=== PATIENT | female | born 1945 | race Caucasian/White ===

== ENCOUNTER → 2017-08-31 15:51 | Outpatient (CLI) | payer MEDICARE, OTHER, SELFPAY ==
[2017-08-31 17:42] LABS: Add Manual Diff / Slide Review NO; Basophils Percent Auto 0.8 % (0-2); Eosinophils Percent Auto 1.9 % (2-4); Hematocrit 37.7 % (36-46); Hemoglobin 12.9 g/dL (12.0-16.0); Lymphocytes Percent Auto 28.6 % (25-40); Mean Corpuscular HGB Conc 34.3 % (30-36); Mean Corpuscular Hemoglobin 33.8 PG (26-34); Mean Corpuscular Volume 98.5 fL (80-100); Monocytes Percent Auto 5.7 % (3-14); Neutrophils Absolute Auto 3300 /uL (3000-5900); Platelet Count 200 X10^3/uL (150-400); Red Blood Cell Count 3.83 X10^6/uL (4.0-5.2); Red Cell Distribution Width 13.8 % (11.6-14.8); White Blood Cell Count 5.2 X10^3/uL (4.5-11.0)
[2017-08-31 18:12] LABS: Erythrocyte Sedimentation Rate 7 MM/HR (0-20)
[2017-08-31 18:23] LABS: Free T3, Triiodothyronine Free 3.16 pg/mL (2.77-5.27); Free T4, Direct Thyroxine 0.98 ng/dL (0.78-2.19)
[2017-08-31 18:37] LABS: TSH w/ Reflex to FT4 1.96 uIU/mL (0.47-4.68)
[2017-08-31 19:27] LABS: Alanine Aminotransferase 43 IU/L (9-52); Albumin 4.2 g/dL (3.5-5.0); Albumin Globulin Ratio 1.8 (1.0-2.8); Alkaline Phosphatase 38 U/L (38-126); Aspartate Aminotransferase 38 IU/L (14-36); BUN Creatinine Ratio 18.8 (6-22); Bilirubin Total 0.3 mg/dL (0.2-1.3); Blood Urea Nitrogen 15 mg/dL (7-17); Calcium 9.3 mg/dL (8.4-10.2); Carbon Dioxide 28 mmol/L (22-32); Chloride 104 mmol/L (98-107); Estimated Glomerular Filt Rate > 60.0 mL/min (>60); Globulin 2.3 g/dL (1.7-4.1); Glucose 97 mg/dL (80-110); HEMOLYSIS < 15 (0-50); Potassium 3.7 mmol/L (3.4-5.1); Sodium 142 mmol/L (137-145); Total Protein 6.5 g/dL (6.3-8.2)
[2017-08-31 19:33] LABS: C-Reactive Protein Quant < 0.5 mg/dL (<1.0); Rheumatoid Factor < 8.6 IU/mL (<12.0)
[2017-08-31 19:57] LABS: Testosterone 99.7 ng/dL (5.71-77.0)
[2017-09-02 14:50] LABS: Progesterone 15.9 ng/mL
[2017-09-03 21:44] LABS: ANA Screen NEGATIVE (Negative); DNA Antibody Crithidia IFA NEGATIVE (Negative); Rheumatoid Factor <14 IU/mL; Sjogren Antiboday SS-A <1.0 NEG AI (<1.0 NEGATIVE); Sjogren Antiboday SS-B <1.0 NEG AI (<1.0 NEGATIVE); Sm Antibody <1.0 NEG AI (<1.0 NEGATIVE); Sm/RNP Antibody <1.0 NEG AI (<1.0 NEGATIVE)
== END ==
PROVIDERS: Visit Provider Family Medicine
DX: Z78.0 Asymptomatic menopausal state (principal); R53.83 Other fatigue; G89.29 Other chronic pain
CPT/HCPCS: 36415; 80053; 84144; 84403; 84439; 84443; 84481; 85025; 85651; 86038; 86140; 86430

== ENCOUNTER → 2017-09-16 11:57 | Outpatient (CLI) | payer MEDICARE, OTHER, SELFPAY ==
[2017-09-18 15:19] LABS: Estrogen 85.6 pg/mL
== END ==
PROVIDERS: PCP Family Medicine; Visit Provider Family Medicine
DX: Z78.0 Asymptomatic menopausal state (principal)
CPT/HCPCS: 36415; 82672

== ENCOUNTER 2017-10-13 07:01 | Emergency (ER) | payer MEDICARE, OTHER, SELFPAY ==
--- NOTE | 2017-10-13 07:10 | DI.RAD.S_ITS ---
PROCEDURE: XR CHEST 1V INDICATIONS: swallowed battery TECHNIQUE: One view of the chest was acquired. COMPARISON: [facility], CR, CHEST 2 VIEW, 12/21/2011, 15:23. RG, XR CXR 2V, 12/18/2011, 16:27. RG, XR CXR 2V, 12/17/2011, 19:26. RG, XR CXR 2V, 12/17/2011, 11:00. [facility], CR, CHEST 2VW, 09/08/2011, 8:52. [facility], CR, CHEST 2 VIEW, 04/09/2015, 9:22. FINDINGS: Surgical changes and devices: None. Lungs and pleura: No pleural effusions or pneumothorax. Lungs are clear. Mediastinum: Mediastinal contours appear normal. Heart size is normal. Bones and chest wall: No suspicious bony lesions. Overlying soft tissues appear unremarkable. IMPRESSION: No acute cardiopulmonary disease process. Dictated by: Vanessa Soriano MD, PhD on 10/13/2017 at 9:07 Approved by: Vanessa Soriano MD, PhD on 10/13/2017 at 9:08
--- NOTE | 2017-10-13 07:10 | DI.RAD.S_ITS ---
PROCEDURE: XR ABDOMEN 1V INDICATIONS: swallowed battery TECHNIQUE: One view of the abdomen acquired. COMPARISON: None. FINDINGS: Surgical changes and devices: None. Bowel: Bowel gas pattern is normal except for colonic obstipation mild in overall severity. Within the left midabdomen near the spine margin there is a metallic rounded structure consistent with swallowed battery. More inferiorly within the left hemipelvis there is a ovoid calcification which measures up to 1.1 cm, etiology uncertain. This could represent a bladder calculus, calcified lymph node, bowel content. Soft tissues: No suspicious abdominal calcifications. Visualized solid organ contours appear normal in size. Bones: No suspicious bony lesions. IMPRESSION: Metallic rounded presumed ingested battery given the clinical history above, uncertain etiology for 1.1 cm angular calcification left hemipelvis near the midline, discussed above. Dictated by: Natanael Darling M.D. on 10/13/2017 at 8:07 Approved by: Natanael Darling M.D. on 10/13/2017 at 8:10
--- NOTE | 2017-10-13 07:11 | ED.GENADULT ---
HPI - General Adult General Chief complaint: Abdominal Pain Stated complaint: swallowed hearing aid battery this A.M. Time Seen by Provider: 10/13/17 07:07 Source: patient Mode of arrival: ambulatory Limitations: no limitations History of Present Illness HPI narrative: 71-year-old female here for evaluation after she swallowed a button battery this morning. Patient states that she normally sits her pills out on her nightstand the night before. She states she did this last evening. She also states she took her hearing aids out and thinks that 1 of the batteries were rolled to where her pills were. She states this morning she full glass of water and took the pills and then realized that a battery was with them. She states she has some nausea but no other symptoms. No problems breathing. Related Data Previous Rx's Medication Instructions Recorded albuterol sulfate [Proventil HFA] 0 IH SEE INSTRUCTIONS #1 vicki 10/18/16 azithromycin [Zithromax Z-Surinder] 0 PO QDAY #6 tab 12/01/16 Allergies Allergy/AdvReac Type Severity Reaction Status Date / Time Sulfa (Sulfonamide Allergy Unknown Unverified 06/02/17 12:12 Antibiotics) [SULFA (SULFONAMIDE ANTIBIOTICS)] codeine Allergy Verified 10/13/17 07:12 Review of Systems Constitutional Denies fatigue and Denies fever(s) Cardiovascular Denies chest pain and Denies dyspnea Respiratory Denies dyspnea Gastrointestinal Gastrointestinal: Denies abdominal pain, Denies diarrhea, Reports nausea and Denies vomiting Integumentary/Breasts Denies rash Endocrine Denies fatigue Hematologic/Lymphatic Denies easy bleeding and Denies easy bruising [facility] Medical History Chronic gastroesophageal reflux disease (Acute) Surgical History No pertinent past surgical history (Acute) Social History Smoking Status: Never smoker Exam Initial Vital Signs Initial Vital Signs: Vital Signs Temperature 97.4 F L 10/13/17 07:12 Pulse Rate 60 10/13/17 07:12 Respiratory Rate 15 10/13/17 07:12 Blood Pressure 136/56 H 10/13/17 07:12 Pulse Oximetry 100 10/13/17 07:12 Const General: cooperative, healthy appearing, comfortable, well developed, well groomed and No acute distress Orientation: alert, awake and oriented x3 HENMT Head: normal to inspection, normocephalic and atraumatic Resp Effort & Inspection: normal respiratory effort Auscultation: clear to auscultation bilaterally Cardio Rate: regular rate Rhythm: regular rhythm Skin Lesions: no lesions Rashes: no rashes Neuro General: alert, awake and oriented x3 Extrem General: capillary refill normal Psych Appearance: grossly normal and well kempt Course Orders Ordered: ED Orders 10/13/17 07:10 XR abdomen 1V Stat XR chest 1V Stat Vital Signs - 8 hr 10/13/17 07:12 Temperature 97.4 F L Pulse Rate 60 Respiratory Rate 15 Blood Pressure 136/56 H Pulse Oximetry 100 Medical Decision Making MDM Narrative Medical decision making narrative: Patient is asymptomatic. But better is below the level of diaphragm and the GI tract. No abdominal pain. No respiratory issues. According to current guidelines asymptomatic individuals with button battery in the GI tract require no emergent intervention or consultation. Patient is asymptomatic. She was instructed that she needed to contact her primary doctor to have a repeat x-ray done in 48 hr. She was given return precautions to return to the emergency department sooner this if she started having fevers, abdominal pain, or vomiting. Patient expressed understanding and agreement with plan. Imaging Data Abdominal x-ray: Attestation: I personally reviewed and interpreted this imaging study as follows: My impression: Button battery blood level of diaphragm in the GI tract Discharge Plan Departure Patient Disposition: Home Clinical Impression: Ingestion of button battery Instructions: DI for Foreign Body, Swallowed-Adult Activity Restrictions/Additional Instructions: Recommend that you continue with a normal diet. Contact your primary doctor today to set up a repeat x-ray in 48 hr. Return to the emergency department for any new symptoms, abdominal pain, vomiting, or fevers. Prescriptions: No Action albuterol sulfate [Proventil HFA] 90 MCG/PUFF HFA aerosol inhaler IH SEE INSTRUCTIONS Qty: 1 RF: 0 azithromycin [Zithromax Z-Surinder] 250 MG tablet PO QDAY Qty: 6 RF: 0
[2017-10-13 07:12] VITALS: BP 136/56; PULSE 60; RESP 15; TEMP 36.3; O2SAT 100; BMI 18.8
== END 2017-10-13 07:55 | disposition home or self-care (01) ==
PROVIDERS: Emergency Provider Emergency Medicine; PCP Family Medicine
DX: T18.9XXA Foreign body of alimentary tract, part unspecified, initial encounter (principal)
CPT/HCPCS: 71045; 74018; 99282; 99283

== ENCOUNTER → 2017-10-15 06:34 | Outpatient (CLI) | payer MEDICARE, OTHER, SELFPAY ==
--- NOTE | 2017-10-15 | DI.RAD.S_ITS ---
PROCEDURE: XR KUB INDICATIONS: foreign body of alimentary tract TECHNIQUE: One view of the abdomen acquired. COMPARISON: None. FINDINGS: Surgical changes and devices: None. Bowel: Bowel gas pattern is normal. Soft tissues: No suspicious abdominal calcifications. Visualized solid organ contours appear normal in size. Round radiodensity is seen projecting in right lower quadrant abdomen, which may represent swallowed foreign body. Bones: No suspicious bony lesions. IMPRESSION: Possible swallowed foreign body projecting in right lower quadrant abdomen. No gross free air. Dictated by: Ez Humphries M.D. on 10/15/2017 at 11:10 Approved by: Ez Humphries M.D. on 10/15/2017 at 11:12
== END ==
PROVIDERS: Family Provider Family Medicine; PCP Family Medicine; Visit Provider Family Medicine
DX: T18.9XXA Foreign body of alimentary tract, part unspecified, initial encounter (principal)
CPT/HCPCS: 74018

== ENCOUNTER → 2017-10-19 06:45 | Outpatient (CLI) | payer MEDICARE, OTHER, SELFPAY ==
--- NOTE | 2017-10-19 | DI.RAD.S_ITS ---
PROCEDURE: XR KUB INDICATIONS: FOREIGN BODY OF ALMENTARY TRACK PART TECHNIQUE: One view of the abdomen acquired. COMPARISON: [facility], CR, XR KUB, 10/15/2017, 6:23. FINDINGS: Surgical changes and devices: None. Bowel: Bowel gas pattern is abnormal with colonic obstipation, and within the right lower quadrant a previously reported swallowed small button battery measuring up to 9 mm in diameter can again be seen. Soft tissues: No suspicious abdominal calcifications. Visualized solid organ contours appear normal in size. Bones: No suspicious bony lesions. IMPRESSION: Colonic obstipation. Button battery again seen right lower quadrant approximately shifted by 8 cm from prior position 4 days ago. It remains within the right lower quadrant. Dictated by: Natanael Darling M.D. on 10/19/2017 at 8:52 Approved by: Natanael Darling M.D. on 10/19/2017 at 8:54
== END ==
PROVIDERS: Family Provider Family Medicine; PCP Family Medicine; Visit Provider Family Medicine
DX: T18.8XXA Foreign body in other parts of alimentary tract, initial encounter (principal); K59.00 Constipation, unspecified
CPT/HCPCS: 74018

== ENCOUNTER → 2017-10-30 06:43 | Outpatient (CLI) | payer MEDICARE, OTHER, SELFPAY ==
--- NOTE | 2017-10-30 | DI.RAD.S_ITS ---
PROCEDURE: XR KUB INDICATIONS: FOREIGN BODY OF ALIMENTARY TRACT TECHNIQUE: One view of the abdomen acquired. COMPARISON: [facility], , XR KUB, 10/19/2017, 6:27. FINDINGS: Surgical changes and devices: None. Bowel: Bowel gas pattern is normal. Soft tissues: No suspicious abdominal calcifications. Visualized solid organ contours appear normal in size. The round radiopaque foreign body is again seen projecting in right pelvic region, unchanged from previous study dated 828 10/19/17. Bones: No suspicious bony lesions. IMPRESSION: Radiopaque foreign body projecting in the region of right pelvis unchanged from previous study. No gross free air. Dictated by: Ez Humphries M.D. on 10/30/2017 at 10:17 Approved by: Ez Humphries M.D. on 10/30/2017 at 10:31
== END ==
PROVIDERS: PCP Family Medicine; Visit Provider Family Medicine
DX: T18.9XXA Foreign body of alimentary tract, part unspecified, initial encounter (principal)
CPT/HCPCS: 74018

== ENCOUNTER → 2017-12-08 14:34 | Outpatient (CLI) | payer MEDICARE, OTHER, SELFPAY ==
--- NOTE | 2017-12-08 | DI.MG.S_ITS ---
BILATERAL DIGITAL SCREENING MAMMOGRAM 3D/2D WITH CAD: 12/08/2017 CLINICAL: Routine screening. Family history of breast cancer. Comparison is made to exams dated: 12/04/2016 mammogram - [facility], 10/08/2015 mammogram, and 04/29/2010 mammogram - [facility]. The tissue of both breasts is heterogeneously dense. This may lower the sensitivity of mammography. Current study was also evaluated with a Computer Aided Detection (CAD) system. No significant masses, calcifications, or other findings are seen in either breast. There has been no significant interval change. IMPRESSION: NEGATIVE There is no mammographic evidence of malignancy. A 1 year screening mammogram is recommended. This exam was interpreted at Station ID: [id number]. NOTE: For mammograms, a report in lay terms will be sent to the patient. Approximately 15% of breast malignancies will not be visualized mammographically. In the management of a palpable breast mass, a negative mammogram must not discourage biopsy of a clinically suspicious lesion. Electronically Signed By: James boudreaux/ronnie:12/08/2017 15:06:13 letter sent: Normal Exam ACR BI-RADS Category 1: Negative [id number]
== END ==
PROVIDERS: Family Provider Family Medicine; PCP Family Medicine; Visit Provider Family Medicine
DX: Z12.31 Encounter for screening mammogram for malignant neoplasm of breast (principal); M81.0 Age-related osteoporosis without current pathological fracture
CPT/HCPCS: 77063; 77067; 77080

== ENCOUNTER 2018-01-18 14:25 | Emergency (ER) | payer MEDICARE, OTHER, SELFPAY ==
[2018-01-18 14:31] VITALS: BP 116/53; PULSE 70; RESP 18; TEMP 36.8; O2SAT 100
--- NOTE | 2018-01-18 15:28 | ED.FEMALEGU ---
HPI - Female Genitourinary <GATO Desai - Last Filed: 01/18/18 20:15> General Chief complaint: Vaginal Bleeding Stated complaint: VAGINAL BLEEDING Time Seen by Provider: 01/18/18 14:56 Source: patient Mode of arrival: ambulatory Limitations: no limitations History of Present Illness HPI Narrative: Patient is a postmenopausal 72-year-old female with history of constipation who presents with chief complaint of sudden onset vaginal bleeding today. She states she has a history of constipation. She is confident that her bleeding is vaginal and not rectal at this point time. She complains of lower abdominal fullness recently. She denies any acute abdominal pain, nausea, vomiting, diarrhea or fever. She states that she has noticed some blood when she wipes after she urinates. She denies any dysuria urgency frequency flank pain or other signs of urinary tract infection. She states she called her PCP who suggested that she come to the emergency department for evaluation of her vaginal bleeding. She denies any lightheadedness, dizziness chest pain or shortness of breath. She states she does have a hemorrhoid that ?pops out? from time to time. She states she had a normal colonoscopy last year. Related Data Home Medications Medication Instructions Recorded Confirmed alendronate 10 mg PO DAILY 01/18/18 01/18/18 amitriptyline 25 mg PO DAILY 01/18/18 01/18/18 omeprazole 20 mg PO BID 01/18/18 01/18/18 polyethylene glycol 3350 01/18/18 simvastatin 20 mg PO DAILY 01/18/18 01/18/18 Previous Rx's Medication Instructions Recorded albuterol sulfate [Proventil HFA] 0 IH SEE INSTRUCTIONS #1 vicki 10/18/16 Allergies Allergy/AdvReac Type Severity Reaction Status Date / Time Sulfa (Sulfonamide Allergy Unknown Unverified 06/02/17 12:12 Antibiotics) [SULFA (SULFONAMIDE ANTIBIOTICS)] codeine Allergy Verified 10/13/17 07:12 Review of Systems <GATO Desai - Last Filed: 01/18/18 20:15> Review of Systems GENERAL: Denies chills, fatigue, malaise, fever, sweats. HEENT: Denies sinus pain, ear pain, sore throat, difficulty swallowing, dizziness. RESPIRATORY: Denies dyspnea, cough, wheezing, hemoptysis, sputum. CARDIOVASCULAR: Denies chest pain, palpitations, orthopnea, edema, GASTROINTESTINAL: See HPI : See HPI MUSCULOSKELETAL: denies weakness, joint pain, or bony pain SKIN: Denies rash, skin lesions, or other NEUROLOGIC: Denies weakness, headache, numbness, change in speech, confusion, seizures, incoordination. PSYCHIATRIC: No concerning psychosocial issues. 12 point review of systems is negative except for those stated above Exam <SCOOBY Desai-BC - Last Filed: 01/18/18 20:15> Narrative Exam Narrative: GENERAL: This is a well-nourished, well-developed patient, in no acute distress HEAD: Atraumatic. Normocephalic. No temporal or scalp tenderness. EYES: Pupils equal round and reactive. Extraocular motions intact. No scleral icterus. No injection or drainage. ENT: Nose without bleeding, purulent drainage or septal hematoma. Throat without erythema, tonsillar hypertrophy or exudate. Uvula midline. Airway patent. NECK: Trachea midline. No JVD or lymphadenopathy. Supple, nontender, no meningeal signs. CARDIOVASCULAR: Regular rate and rhythm without murmurs, gallops, or rubs. RESPIRATORY: Clear to auscultation. Breath sounds equal bilaterally. No wheezes, rales, or rhonchi. No cough. No increased respiratory effort. GASTROINTESTINAL: Abdomen soft, non-tender, nondistended. No hepato-splenomegaly, or palpable masses. No guarding. No pulsatile mass. EXTREMITIES: No clubbing, cyanosis, or edema. No joint tenderness, effusion, or edema noted. BACK: Nontender without deformity or crepitance. No flank tenderness. NEURO: AOx3. SKIN: No rash or erythema. : Exam performed with Radha RN at bedside. Dried blood noted around anus as well as vagina. Slight blood noted in vaginal introitus. Initial Vital Signs Initial Vital Signs: Vital Signs Temperature 98.3 F 01/18/18 14:31 Pulse Rate 70 01/18/18 14:31 Respiratory Rate 18 01/18/18 14:31 Blood Pressure 116/53 L 01/18/18 14:31 Pulse Oximetry 100 01/18/18 14:31 <Ava Ludwig DO - Last Filed: 01/19/18 07:59> Initial Vital Signs Initial Vital Signs: Vital Signs Temperature 98.3 F 01/18/18 14:31 Pulse Rate 70 01/18/18 14:31 Respiratory Rate 18 01/18/18 14:31 Blood Pressure 116/53 L 01/18/18 14:31 Pulse Oximetry 100 01/18/18 14:31 Procedures <Karlie ZayasMAIBC - Last Filed: 01/18/18 20:15> Stool Hemoccult Procedural Steps Taken: stool placed in appropriate test area, developer placed on stool and control areas and controls appropriately positive and negative Hemoccult result: positive Additional Comments: Noted slightly heme neck positive. Patient states she has a known internal hemorrhoid. States negative colonoscopy recently. Course <Karlie FeldmanSCOOBY galeana-BC - Last Filed: 01/18/18 20:15> Orders Ordered: ED Orders 01/18/18 15:30 US pelvic complete Stat 01/18/18 15:41 Complete Blood Count AUTO DIFF Stat Comprehensive Metabolic Panel Stat 01/18/18 15:45 Urinalysis and Microscopic Stat Urine Culture Stat Consultations Consultation #1: Spoke with Dr. Bedolla who was on-call for OBGYN. Consulting physician stated that the patient was stable enough to wait for outpatient follow-up but it would be preferable to be as soon as possible. Time: 16:30 Consultation #2: Spoke with facilities specialist office. Patient had an appointment made by myself on Wednesday the at 12:[address] Martinez. This was communicated to the patient and she was given contact information so that she can cancel or change the appointment if needed. Time: 16:45 Vital Signs - 8 hr 01/18/18 14:31 01/18/18 16:17 Temperature 98.3 F Pulse Rate 70 68 Respiratory Rate 18 14 Blood Pressure 116/53 L Blood Pressure [Right Arm] 117/61 Pulse Oximetry 100 100 <Ava Ludwig DO - Last Filed: 01/19/18 07:59> Orders Ordered: ED Orders 01/18/18 15:30 US pelvic complete Stat 01/18/18 15:41 Complete Blood Count AUTO DIFF Stat Comprehensive Metabolic Panel Stat 01/18/18 15:45 Urinalysis and Microscopic Stat Urine Culture Stat Vital Signs - 8 hr 01/18/18 14:31 01/18/18 16:17 Temperature 98.3 F Pulse Rate 70 68 Respiratory Rate 18 14 Blood Pressure 116/53 L Blood Pressure [Right Arm] 117/61 Pulse Oximetry 100 100 MDM - Female Genitourinary <SCOOBY Desai- - Last Filed: 01/18/18 20:15> Lab Data Result diagrams: 01/18/18 15:41 01/18/18 15:41 Lab Results 01/18/18 01/18/18 01/18/18 Range/Units 15:41 15:41 15:45 WBC 8.0 (4.5-11.0) X10^3/uL RBC 3.68 L (4.0-5.2) X10^6/uL Hgb 12.0 (12.0-16.0) g/dL Hct 36.4 (36-46) % MCV 99.0 (80-100) fL MCH 32.7 (26-34) PG MCHC 33.0 (30-36) % RDW 13.6 (11.6-14.8) % Plt Count 177 (150-400) X10^3/uL Neut % (Auto) 75.4 H (50-75) % Lymph % (Auto) 16.2 L (25-40) % [place] % (Auto) 6.9 (3-14) % Eos % (Auto) 1.0 L (2-4) % Baso % (Auto) 0.5 (0-2) % Neut # (Auto) 6000 H (2014-5632) /uL Total Counted Cancelled Seg Neutrophils % Cancelled Band Neutrophils % Cancelled Lymphocytes % (Manual) Cancelled Atypical Lymphs % Cancelled Monocytes % (Manual) Cancelled Eosinophils % (Manual) Cancelled Basophils % (Manual) Cancelled Metamyelocytes % Cancelled Myelocytes % Cancelled Promyelocytes % Cancelled Blast Cells % Cancelled Neutrophils # (Manual) Cancelled Nucleated RBCs Cancelled Differential Comment Cancelled Hypersegmented Neuts Cancelled Hypogranular Neuts Cancelled Reactive Lymphocytes Cancelled Plasma Cells Cancelled Smudge Cells Cancelled Other Cell Type Cancelled Toxic Granulation Cancelled Toxic Vacuolation Cancelled Dohle Bodies Cancelled Christophe Rods Cancelled WBC Morphology Comment Cancelled Platelet Estimate Cancelled Clumped Platelets Cancelled Plt Morphology Comment Cancelled RBC Morphology Cancelled Dimorphic RBCs Cancelled Polychromasia Cancelled Hypochromasia Cancelled Poikilocytosis Cancelled Basophilic Stippling Cancelled Anisocytosis Cancelled Microcytosis Cancelled Macrocytosis Cancelled Spherocytes Cancelled Pappenheimer Bodies Cancelled Sickle Cells Cancelled Target Cells Cancelled Tear Drop Cells Cancelled Ovalocytes Cancelled Stomatocytes Cancelled Helmet Cells Cancelled Bethea-[place] Bodies Cancelled Perry Rings Cancelled Ethan Cells Cancelled Acanthocytes (Spur) Cancelled Rouleaux Cancelled Schistocytes Cancelled Sodium 141 (137-145) mmol/L Potassium 3.9 (3.4-5.1) mmol/L Chloride 105 (98-107) mmol/L Carbon Dioxide 27 (22-32) mmol/L BUN 11 (7-17) mg/dL Creatinine 0.60 (0.52-1.04) mg/dL Estimated GFR > 60.0 (>60) mL/min BUN/Creatinine Ratio 18.3 (6-22) Glucose 88 (80-110) mg/dL Calcium 8.4 (8.4-10.2) mg/dL Total Bilirubin 0.2 (0.2-1.3) mg/dL AST 33 (14-36) IU/L ALT 37 (9-52) IU/L Alkaline Phosphatase 39 (38-126) U/L Total Protein 6.3 (6.3-8.2) g/dL Albumin 4.0 (3.5-5.0) g/dL Globulin 2.3 (1.7-4.1) g/dL Albumin/Globulin Ratio 1.7 (1.0-2.8) Urine Color Yellow Urine Appearance Clear Urine pH 7.0 (4.5-8.0) Ur Specific [place] 1.010 (1.000-1.035) Urine Protein Negative (Negative) Urine Glucose (UA) Negative (Normal) g/dL Urine Ketones Negative (NEGATIVE) Urine Occult Blood 3+ H (Negative) Urine Nitrate Negative (Negative) Urine Bilirubin Negative (NEGATIVE) Urine Urobilinogen 0.2 (0.2) E.U./dL Ur Leukocyte Esterase Trace H (NEGATIVE) Urine RBC 30-100/hpf H (0-5/HPF) Urine WBC 0-1/hpf (0-5/HPF) Ur Squamous Epith Cells None seen Urine Bacteria None seen (None) Ur Culture Indicated? Specimen cultured Micro UA Comment Not Reportable Imaging Data pelvic us: Radiologist's impression: [address] [address] Ultrasound Report Signed Patient: Elda Mendoza JMR#: [id number] : 7Acct:[id number] Age/Sex: 72 / FDate of Service: 01/18/18 Loc: ED Accession Number: [id number] Procedure: US pelvic complete Ordering Provider: Karlie Zayas- PROCEDURE: US PELVIC COMPLETE INDICATIONS: VAGINAL BLEEDING TECHNIQUE: Real-time scanning was performed of the pelvic organs, with image documentation. Additional endovaginal scanning was necessary due to incomplete visualization of the adnexal and endometrial structures by transabdominal scanning. COMPARISON: None. FINDINGS: Transabdominal scanning: Limited scanning through the kidneys shows no hydronephrosis. No pathologic free abdominal or pelvic fluid. Endovaginal scanning: Uterus: Uterus is normal in size at 9.9 x 4.1 x 5.8 cm. The endometrium measures 6.5 mm in combined thickness. Ovaries: The ovaries are not visualized. IMPRESSION: 1. Endometrial canal measures 6.5 cm. This is considered greater than expected for patient age and given history of bleeding. Endometrial neoplasm cannot be excluded. IT TECHNICAL SPECIALIST consult is recommended. Dictated by: Patricia Cain M.D. on 01/18/2018 at 16:25 Approved by: Patricia Cain M.D. on 01/18/2018 at 16:26 [facility] Narrative Medical decision making narrative: Patient is a postmenopausal 72-year-old female who presents with sudden onset of vaginal bleeding. Given her presentation and ultrasound results, I am concerned about possible endometrial carcinoma or other etiology at this point in time. However she is hemodynamically stable and nontoxic. I spoke with the OB on-call who stated that this patient could be worked up as an outpatient at this point time. I maybe the patient an appointment with Dr. Martinez in the facilities specialist office on Wednesday at the 3rd at 1:00 p.m. with arrival at 12:45 p.m. to ensure follow-up given that I am concerned about neoplasm in this patient. I encourage follow-up with OBGYN as well as her primary care provider. Patient had no questions or concerns upon discharge. I gave her a phone number to call if she needs to change or cancel her OBGYN appointment, but I had a sara conversation with her and encouraged follow-up. Discussed return precautions of dizziness, lightheadedness, excessive vaginal bleeding or any acute concerns. <Ava Ludwig, - Last Filed: 01/19/18 07:59> Lab Data Lab Results 01/18/18 01/18/18 01/18/18 Range/Units 15:41 15:41 15:45 WBC 8.0 (4.5-11.0) X10^3/uL RBC 3.68 L (4.0-5.2) X10^6/uL Hgb 12.0 (12.0-16.0) g/dL Hct 36.4 (36-46) % MCV 99.0 (80-100) fL MCH 32.7 (26-34) PG MCHC 33.0 (30-36) % RDW 13.6 (11.6-14.8) % Plt Count 177 (150-400) X10^3/uL Neut % (Auto) 75.4 H (50-75) % Lymph % (Auto) 16.2 L (25-40) % [place] % (Auto) 6.9 (3-14) % Eos % (Auto) 1.0 L (2-4) % Baso % (Auto) 0.5 (0-2) % Neut # (Auto) 6000 H (2485-4461) /uL Total Counted Cancelled Seg Neutrophils % Cancelled Band Neutrophils % Cancelled Lymphocytes % (Manual) Cancelled Atypical Lymphs % Cancelled Monocytes % (Manual) Cancelled Eosinophils % (Manual) Cancelled Basophils % (Manual) Cancelled Metamyelocytes % Cancelled Myelocytes % Cancelled Promyelocytes % Cancelled Blast Cells % Cancelled Neutrophils # (Manual) Cancelled Nucleated RBCs Cancelled Differential Comment Cancelled Hypersegmented Neuts Cancelled Hypogranular Neuts Cancelled Reactive Lymphocytes Cancelled Plasma Cells Cancelled Smudge Cells Cancelled Other Cell Type Cancelled Toxic Granulation Cancelled Toxic Vacuolation Cancelled Dohle Bodies Cancelled Christophe Rods Cancelled WBC Morphology Comment Cancelled Platelet Estimate Cancelled Clumped Platelets Cancelled Plt Morphology Comment Cancelled RBC Morphology Cancelled Dimorphic RBCs Cancelled Polychromasia Cancelled Hypochromasia Cancelled Poikilocytosis Cancelled Basophilic Stippling Cancelled Anisocytosis Cancelled Microcytosis Cancelled Macrocytosis Cancelled Spherocytes Cancelled Pappenheimer Bodies Cancelled Sickle Cells Cancelled Target Cells Cancelled Tear Drop Cells Cancelled Ovalocytes Cancelled Stomatocytes Cancelled Helmet Cells Cancelled Bethea-[place] Bodies Cancelled Perry Rings Cancelled Ethan Cells Cancelled Acanthocytes (Spur) Cancelled Rouleaux Cancelled Schistocytes Cancelled Sodium 141 (137-145) mmol/L Potassium 3.9 (3.4-5.1) mmol/L Chloride 105 (98-107) mmol/L Carbon Dioxide 27 (22-32) mmol/L BUN 11 (7-17) mg/dL Creatinine 0.60 (0.52-1.04) mg/dL Estimated GFR > 60.0 (>60) mL/min BUN/Creatinine Ratio 18.3 (6-22) Glucose 88 (80-110) mg/dL Calcium 8.4 (8.4-10.2) mg/dL Total Bilirubin 0.2 (0.2-1.3) mg/dL AST 33 (14-36) IU/L ALT 37 (9-52) IU/L Alkaline Phosphatase 39 (38-126) U/L Total Protein 6.3 (6.3-8.2) g/dL Albumin 4.0 (3.5-5.0) g/dL Globulin 2.3 (1.7-4.1) g/dL Albumin/Globulin Ratio 1.7 (1.0-2.8) Urine Color Yellow Urine Appearance Clear Urine pH 7.0 (4.5-8.0) Ur Specific [place] 1.010 (1.000-1.035) Urine Protein Negative (Negative) Urine Glucose (UA) Negative (Normal) g/dL Urine Ketones Negative (NEGATIVE) Urine Occult Blood 3+ H (Negative) Urine Nitrate Negative (Negative) Urine Bilirubin Negative (NEGATIVE) Urine Urobilinogen 0.2 (0.2) E.U./dL Ur Leukocyte Esterase Trace H (NEGATIVE) Urine RBC 30-100/hpf H (0-5/HPF) Urine WBC 0-1/hpf (0-5/HPF) Ur Squamous Epith Cells None seen Urine Bacteria None seen (None) Ur Culture Indicated? Specimen cultured Micro UA Comment Not Reportable Discharge Plan Departure Patient Disposition: Home Clinical Impression: Vaginal bleeding, DUB (dysfunctional uterine bleeding) Discharge Date/Time: 01/18/18 17:11 Interventions: ED Discharge Assessment Last Done: 01/18/18 17:11 Instructions: DI for Vaginal Bleeding Activity Restrictions/Additional Instructions: You are having abnormal vaginal bleeding, which is concerning. Your blood counts are okay. I would like you to follow up with OBGYN. I have made an appointment for you on Wednesday this with Dr. Martinez and they would like you to be there at 12:45 p.m.. If you need to change that appointment you can call them at [phone]. Please be sure to follow up with an OBGYN. Please push fluids and rest. Come back to the emergency department if needed. Prescriptions: No Action albuterol sulfate [Proventil HFA] 90 MCG/PUFF HFA aerosol inhaler IH SEE INSTRUCTIONS Qty: 1 RF: 0 alendronate 10 mg tablet 10 mg PO DAILY RF: 0 amitriptyline 25 mg tablet 25 mg PO DAILY RF: 0 simvastatin 20 mg tablet 20 mg PO DAILY RF: 0 omeprazole 20 mg capsule,delayed release(DR/EC) 20 mg PO BID RF: 0 polyethylene glycol 3350 17 gram/dose powder RF: 0 Referrals: Renetta Martinez MD [Physician] - Kael Caballero MD [Primary Care Provider] - <Ava Ludwig DO - Last Filed: 01/19/18 07:59> Cosign ED Attending Daisy Attestation: I was immediately available in the department for consultation. Documentation has been reviewed. I agree with assessment and plan.
[2018-01-18 15:48] LABS: Hematocrit 36.4 % (36-46); Mean Corpuscular Hemoglobin 32.7 PG (26-34); Platelet Count 177 X10^3/uL (150-400); Red Blood Cell Count 3.68 X10^6/uL (4.0-5.2); Red Cell Distribution Width 13.6 % (11.6-14.8)
[2018-01-18 15:55] LABS: Add Manual Diff / Slide Review NO; Basophils Percent Auto 0.5 % (0-2); Lymphocytes Percent Auto 16.2 % (25-40); Monocytes Percent Auto 6.9 % (3-14); Neutrophils Percent Auto 75.4 % (50-75)
[2018-01-18 15:56] LABS: Neutrophils Absolute Auto 6000 /uL (3000-5900)
[2018-01-18 15:58] LABS: Bacteria Urine None Seen
[2018-01-18 16:02] LABS: Alanine Aminotransferase 37 IU/L (9-52); Albumin Globulin Ratio 1.7 (1.0-2.8); Alkaline Phosphatase 39 U/L (38-126); Aspartate Aminotransferase 33 IU/L (14-36); BUN Creatinine Ratio 18.3 (6-22); Bilirubin Total 0.2 mg/dL (0.2-1.3); Blood Urea Nitrogen 11 mg/dL (7-17); Calcium 8.4 mg/dL (8.4-10.2); Carbon Dioxide 27 mmol/L (22-32); Chloride 105 mmol/L (98-107); Estimated Glomerular Filt Rate > 60.0 mL/min (>60); Globulin 2.3 g/dL (1.7-4.1); Glucose 88 mg/dL (80-110); HEMOLYSIS < 15 (0-50); Potassium 3.9 mmol/L (3.4-5.1); Sodium 141 mmol/L (137-145); Total Protein 6.3 g/dL (6.3-8.2)
[2018-01-18 16:02] LABS: Appearance Urine UA CLEAR; Bilirubin Urine UA NEGATIVE (NEGATIVE); Color Urine UA YELLOW; Glucose Urine UA NEGATIVE (Normal); Ketones Urine UA NEGATIVE (NEGATIVE); Leukocyte Esterase Urine UA TRACE (NEGATIVE); Nitrite Urine UA NEGATIVE (Negative); Occult Blood Urine UA 3+ (Negative); Protein Urine UA NEGATIVE (Negative); Urobilinogen Urine UA 0.2 E.U./dL (0.2)
[2018-01-18 16:17] VITALS: BP 117/61; PULSE 68; RESP 14; O2SAT 100
[2018-01-18 16:23] LABS: RBC Urine 30-100/HPF (0-5/HPF); Squamous Epithelial Cell Urine None Seen; WBC Urine 0-1/HPF (0-5/HPF)
[2018-01-18 16:24] LABS: Culture Indicated Urine Specimen Cultured
--- NOTE | 2018-01-18 16:24 | PC.NURSE ---
stand by for rectal/vag exam
--- NOTE | 2018-01-18 19:36 | ED_ITS ---
HPI - Female Genitourinary <GATO Desai - Last Filed: 01/18/18 20:15> General Chief complaint: Vaginal Bleeding Stated complaint: VAGINAL BLEEDING Time Seen by Provider: 01/18/18 14:56 Source: patient Mode of arrival: ambulatory Limitations: no limitations History of Present Illness HPI Narrative: Patient is a postmenopausal 72-year-old female with history of constipation who presents with chief complaint of sudden onset vaginal bleeding today. She states she has a history of constipation. She is confident that her bleeding is vaginal and not rectal at this point time. She complains of lower abdominal fullness recently. She denies any acute abdominal pain, nausea , vomiting, diarrhea or fever. She states that she has noticed some blood when she wipes after she urinates. She denies any dysuria urgency frequency flank pain or other signs of urinary tract infection. She states she called her PCP who suggested that she come to the emergency department for evaluation of her vaginal bleeding. She denies any lightheadedness, dizziness chest pain or shortness of breath. She states she does have a hemorrhoid that ?pops out? from time to time. She states she had a normal colonoscopy last year. Related Data Home Medications Medication Instructions Recorded Confirmed alendronate 10 mg PO DAILY 01/18/18 01/18/18 amitriptyline 25 mg PO DAILY 01/18/18 01/18/18 omeprazole 20 mg PO BID 01/18/18 01/18/18 polyethylene glycol 3350 01/18/18 simvastatin 20 mg PO DAILY 01/18/18 01/18/18 Previous Rx's Medication Instructions Recorded albuterol sulfate [Proventil HFA] 0 IH SEE INSTRUCTIONS #1 vicki 10/18/16 Allergies Allergy/AdvReac Type Severity Reaction Status Date / Time Sulfa (Sulfonamide Allergy Unknown Unverified 06/02/17 12:12 Antibiotics) [SULFA (SULFONAMIDE ANTIBIOTICS)] codeine Allergy Verified 10/13/17 07:12 Review of Systems <GATO Desai - Last Filed: 01/18/18 20:15> Review of Systems GENERAL: Denies chills, fatigue, malaise, fever, sweats. HEENT: Denies sinus pain, ear pain, sore throat, difficulty swallowing, dizziness. RESPIRATORY: Denies dyspnea, cough, wheezing, hemoptysis, sputum. CARDIOVASCULAR: Denies chest pain, palpitations, orthopnea, edema, GASTROINTESTINAL: See HPI : See HPI MUSCULOSKELETAL: denies weakness, joint pain, or bony pain SKIN: Denies rash, skin lesions, or other NEUROLOGIC: Denies weakness, headache, numbness, change in speech, confusion, seizures, incoordination. PSYCHIATRIC: No concerning psychosocial issues. 12 point review of systems is negative except for those stated above Exam <SCOOBY Desai-BC - Last Filed: 01/18/18 20:15> Narrative Exam Narrative: GENERAL: This is a well-nourished, well-developed patient, in no acute distress HEAD: Atraumatic. Normocephalic. No temporal or scalp tenderness. EYES: Pupils equal round and reactive. Extraocular motions intact. No scleral icterus. No injection or drainage. ENT: Nose without bleeding, purulent drainage or septal hematoma. Throat without erythema, tonsillar hypertrophy or exudate. Uvula midline. Airway patent. NECK: Trachea midline. No JVD or lymphadenopathy. Supple, nontender, no meningeal signs. CARDIOVASCULAR: Regular rate and rhythm without murmurs, gallops, or rubs. RESPIRATORY: Clear to auscultation. Breath sounds equal bilaterally. No wheezes , rales, or rhonchi. No cough. No increased respiratory effort. GASTROINTESTINAL: Abdomen soft, non-tender, nondistended. No hepato-splenomegaly , or palpable masses. No guarding. No pulsatile mass. EXTREMITIES: No clubbing, cyanosis, or edema. No joint tenderness, effusion, or edema noted. BACK: Nontender without deformity or crepitance. No flank tenderness. NEURO: AOx3. SKIN: No rash or erythema. : Exam performed with Radha RN at bedside. Dried blood noted around anus as well as vagina. Slight blood noted in vaginal introitus. Initial Vital Signs Initial Vital Signs: Vital Signs Temperature 98.3 F 01/18/18 14:31 Pulse Rate 70 01/18/18 14:31 Respiratory Rate 18 01/18/18 14:31 Blood Pressure 116/53 L 01/18/18 14:31 Pulse Oximetry 100 01/18/18 14:31 <Ava Ludwig DO - Last Filed: 01/19/18 07:59> Initial Vital Signs Initial Vital Signs: Vital Signs Temperature 98.3 F 01/18/18 14:31 Pulse Rate 70 01/18/18 14:31 Respiratory Rate 18 01/18/18 14:31 Blood Pressure 116/53 L 01/18/18 14:31 Pulse Oximetry 100 01/18/18 14:31 Procedures <Karlie aZyasMAIBC - Last Filed: 01/18/18 20:15> Stool Hemoccult Procedural Steps Taken: stool placed in appropriate test area, developer placed on stool and control areas and controls appropriately positive and negative Hemoccult result: positive Additional Comments: Noted slightly heme neck positive. Patient states she has a known internal hemorrhoid. States negative colonoscopy recently. Course <Karlie FeldmanSCOOBY galeana-BC - Last Filed: 01/18/18 20:15> Orders Ordered: ED Orders 01/18/18 15:30 US pelvic complete Stat 01/18/18 15:41 Complete Blood Count AUTO DIFF Stat Comprehensive Metabolic Panel Stat 01/18/18 15:45 Urinalysis and Microscopic Stat Urine Culture Stat Consultations Consultation #1: Spoke with Dr. Bedolla who was on-call for OBGYN. Consulting physician stated that the patient was stable enough to wait for outpatient follow-up but it would be preferable to be as soon as possible. Time: 16:30 Consultation #2: Spoke with [facility]. Patient had an appointment made by myself on Wednesday the at 12:[address] Martinez. This was communicated to the patient and she was given contact information so that she can cancel or change the appointment if needed. Time: 16:45 Vital Signs - 8 hr 01/18/18 14:31 01/18/18 16:17 Temperature 98.3 F Pulse Rate 70 68 Respiratory Rate 18 14 Blood Pressure 116/53 L Blood Pressure [Right Arm] 117/61 Pulse Oximetry 100 100 <Ava Ludwig DO - Last Filed: 01/19/18 07:59> Orders Ordered: ED Orders 01/18/18 15:30 US pelvic complete Stat 01/18/18 15:41 Complete Blood Count AUTO DIFF Stat Comprehensive Metabolic Panel Stat 01/18/18 15:45 Urinalysis and Microscopic Stat Urine Culture Stat Vital Signs - 8 hr 01/18/18 14:31 01/18/18 16:17 Temperature 98.3 F Pulse Rate 70 68 Respiratory Rate 18 14 Blood Pressure 116/53 L Blood Pressure [Right Arm] 117/61 Pulse Oximetry 100 100 MDM - Female Genitourinary <SCOOBY Desai- - Last Filed: 01/18/18 20:15> Lab Data Result diagrams: 01/18/18 15:41 01/18/18 15:41 Lab Results 01/18/18 01/18/18 01/18/18 Range/Units 15:41 15:41 15:45 WBC 8.0 (4.5-11.0) X10^3/uL RBC 3.68 L (4.0-5.2) X10^6/uL Hgb 12.0 (12.0-16.0) g/dL Hct 36.4 (36-46) % MCV 99.0 (80-100) fL MCH 32.7 (26-34) PG MCHC 33.0 (30-36) % RDW 13.6 (11.6-14.8) % Plt Count 177 (150-400) X10^3/uL Neut % (Auto) 75.4 H (50-75) % Lymph % (Auto) 16.2 L (25-40) % [place] % (Auto) 6.9 (3-14) % Eos % (Auto) 1.0 L (2-4) % Baso % (Auto) 0.5 (0-2) % Neut # (Auto) 6000 H (4158-7174) /uL Total Counted Cancelled Seg Neutrophils % Cancelled Band Neutrophils % Cancelled Lymphocytes % (Manual) Cancelled Atypical Lymphs % Cancelled Monocytes % (Manual) Cancelled Eosinophils % (Manual) Cancelled Basophils % (Manual) Cancelled Metamyelocytes % Cancelled Myelocytes % Cancelled Promyelocytes % Cancelled Blast Cells % Cancelled Neutrophils # (Manual) Cancelled Nucleated RBCs Cancelled Differential Comment Cancelled Hypersegmented Neuts Cancelled Hypogranular Neuts Cancelled Reactive Lymphocytes Cancelled Plasma Cells Cancelled Smudge Cells Cancelled Other Cell Type Cancelled Toxic Granulation Cancelled Toxic Vacuolation Cancelled Dohle Bodies Cancelled Christophe Rods Cancelled WBC Morphology Comment Cancelled Platelet Estimate Cancelled Clumped Platelets Cancelled Plt Morphology Comment Cancelled RBC Morphology Cancelled Dimorphic RBCs Cancelled Polychromasia Cancelled Hypochromasia Cancelled Poikilocytosis Cancelled Basophilic Stippling Cancelled Anisocytosis Cancelled Microcytosis Cancelled Macrocytosis Cancelled Spherocytes Cancelled Pappenheimer Bodies Cancelled Sickle Cells Cancelled Target Cells Cancelled Tear Drop Cells Cancelled Ovalocytes Cancelled Stomatocytes Cancelled Helmet Cells Cancelled Bethea-[place] Bodies Cancelled Shidler Rings Cancelled Ethan Cells Cancelled Acanthocytes (Spur) Cancelled Rouleaux Cancelled Schistocytes Cancelled Sodium 141 (137-145) mmol/L Potassium 3.9 (3.4-5.1) mmol/L Chloride 105 (98-107) mmol/L Carbon Dioxide 27 (22-32) mmol/L BUN 11 (7-17) mg/dL Creatinine 0.60 (0.52-1.04) mg/dL Estimated GFR > 60.0 (>60) mL/min BUN/Creatinine Ratio 18.3 (6-22) Glucose 88 (80-110) mg/dL Calcium 8.4 (8.4-10.2) mg/dL Total Bilirubin 0.2 (0.2-1.3) mg/dL AST 33 (14-36) IU/L ALT 37 (9-52) IU/L Alkaline Phosphatase 39 (38-126) U/L Total Protein 6.3 (6.3-8.2) g/dL Albumin 4.0 (3.5-5.0) g/dL Globulin 2.3 (1.7-4.1) g/dL Albumin/Globulin Ratio 1.7 (1.0-2.8) Urine Color Yellow Urine Appearance Clear Urine pH 7.0 (4.5-8.0) Ur Specific Elliott 1.010 (1.000-1.035) Urine Protein Negative (Negative) Urine Glucose (UA) Negative (Normal) g/dL Urine Ketones Negative (NEGATIVE) Urine Occult Blood 3+ H (Negative) Urine Nitrate Negative (Negative) Urine Bilirubin Negative (NEGATIVE) Urine Urobilinogen 0.2 (0.2) E.U./dL Ur Leukocyte Esterase Trace H (NEGATIVE) Urine RBC 30-100/hpf H (0-5/HPF) Urine WBC 0-1/hpf (0-5/HPF) Ur Squamous Epith Cells None seen Urine Bacteria None seen (None) Ur Culture Indicated? Specimen cultured Micro UA Comment Not Reportable Imaging Data pelvic us: Radiologist's impression: [address] [address] Ultrasound Report Signed Patient: Elda Mendoza JMR#: [id number] : 7Acct:[id number] Age/Sex: 72 / FDate of Service: 01/18/18 Loc: ED Accession Number: [id number] Procedure: US pelvic complete Ordering Provider: Karlie Zayas- PROCEDURE: US PELVIC COMPLETE INDICATIONS: VAGINAL BLEEDING TECHNIQUE: Real-time scanning was performed of the pelvic organs, with image documentation. Additional endovaginal scanning was necessary due to incomplete visualization of the adnexal and endometrial structures by transabdominal scanning. COMPARISON: None. FINDINGS: Transabdominal scanning: Limited scanning through the kidneys shows no hydronephrosis. No pathologic free abdominal or pelvic fluid. Endovaginal scanning: Uterus: Uterus is normal in size at 9.9 x 4.1 x 5.8 cm. The endometrium measures 6.5 mm in combined thickness. Ovaries: The ovaries are not visualized. IMPRESSION: 1. Endometrial canal measures 6.5 cm. This is considered greater than expected for patient age and given history of bleeding. Endometrial neoplasm cannot be excluded. [employer] consult is recommended. Dictated by: Patricia Cain M.D. on 01/18/2018 at 16:25 Approved by: Patricia Cain M.D. on 01/18/2018 at 16:26 [facility] Narrative Medical decision making narrative: Patient is a postmenopausal 72-year-old female who presents with sudden onset of vaginal bleeding. Given her presentation and ultrasound results, I am concerned about possible endometrial carcinoma or other etiology at this point in time. However she is hemodynamically stable and nontoxic. I spoke with the OB on-call who stated that this patient could be worked up as an outpatient at this point time. I maybe the patient an appointment with Dr. Martinez in the [facility] office on Wednesday at the 3rd at 1:00 p.m. with arrival at 12:45 p.m. to ensure follow-up given that I am concerned about neoplasm in this patient. I encourage follow-up with OBGYN as well as her primary care provider. Patient had no questions or concerns upon discharge. I gave her a phone number to call if she needs to change or cancel her OBGYN appointment, but I had a sara conversation with her and encouraged follow-up. Discussed return precautions of dizziness, lightheadedness, excessive vaginal bleeding or any acute concerns. <Ava Ludwig, - Last Filed: 01/19/18 07:59> Lab Data Lab Results 01/18/18 01/18/18 01/18/18 Range/Units 15:41 15:41 15:45 WBC 8.0 (4.5-11.0) X10^3/uL RBC 3.68 L (4.0-5.2) X10^6/uL Hgb 12.0 (12.0-16.0) g/dL Hct 36.4 (36-46) % MCV 99.0 (80-100) fL MCH 32.7 (26-34) PG MCHC 33.0 (30-36) % RDW 13.6 (11.6-14.8) % Plt Count 177 (150-400) X10^3/uL Neut % (Auto) 75.4 H (50-75) % Lymph % (Auto) 16.2 L (25-40) % [place] % (Auto) 6.9 (3-14) % Eos % (Auto) 1.0 L (2-4) % Baso % (Auto) 0.5 (0-2) % Neut # (Auto) 6000 H (5072-0921) /uL Total Counted Cancelled Seg Neutrophils % Cancelled Band Neutrophils % Cancelled Lymphocytes % (Manual) Cancelled Atypical Lymphs % Cancelled Monocytes % (Manual) Cancelled Eosinophils % (Manual) Cancelled Basophils % (Manual) Cancelled Metamyelocytes % Cancelled Myelocytes % Cancelled Promyelocytes % Cancelled Blast Cells % Cancelled Neutrophils # (Manual) Cancelled Nucleated RBCs Cancelled Differential Comment Cancelled Hypersegmented Neuts Cancelled Hypogranular Neuts Cancelled Reactive Lymphocytes Cancelled Plasma Cells Cancelled Smudge Cells Cancelled Other Cell Type Cancelled Toxic Granulation Cancelled Toxic Vacuolation Cancelled Dohle Bodies Cancelled Christophe Rods Cancelled WBC Morphology Comment Cancelled Platelet Estimate Cancelled Clumped Platelets Cancelled Plt Morphology Comment Cancelled RBC Morphology Cancelled Dimorphic RBCs Cancelled Polychromasia Cancelled Hypochromasia Cancelled Poikilocytosis Cancelled Basophilic Stippling Cancelled Anisocytosis Cancelled Microcytosis Cancelled Macrocytosis Cancelled Spherocytes Cancelled Pappenheimer Bodies Cancelled Sickle Cells Cancelled Target Cells Cancelled Tear Drop Cells Cancelled Ovalocytes Cancelled Stomatocytes Cancelled Helmet Cells Cancelled Bethea-[place] Bodies Cancelled Shidler Rings Cancelled Ethan Cells Cancelled Acanthocytes (Spur) Cancelled Rouleaux Cancelled Schistocytes Cancelled Sodium 141 (137-145) mmol/L Potassium 3.9 (3.4-5.1) mmol/L Chloride 105 (98-107) mmol/L Carbon Dioxide 27 (22-32) mmol/L BUN 11 (7-17) mg/dL Creatinine 0.60 (0.52-1.04) mg/dL Estimated GFR > 60.0 (>60) mL/min BUN/Creatinine Ratio 18.3 (6-22) Glucose 88 (80-110) mg/dL Calcium 8.4 (8.4-10.2) mg/dL Total Bilirubin 0.2 (0.2-1.3) mg/dL AST 33 (14-36) IU/L ALT 37 (9-52) IU/L Alkaline Phosphatase 39 (38-126) U/L Total Protein 6.3 (6.3-8.2) g/dL Albumin 4.0 (3.5-5.0) g/dL Globulin 2.3 (1.7-4.1) g/dL Albumin/Globulin Ratio 1.7 (1.0-2.8) Urine Color Yellow Urine Appearance Clear Urine pH 7.0 (4.5-8.0) Ur Specific Elliott 1.010 (1.000-1.035) Urine Protein Negative (Negative) Urine Glucose (UA) Negative (Normal) g/dL Urine Ketones Negative (NEGATIVE) Urine Occult Blood 3+ H (Negative) Urine Nitrate Negative (Negative) Urine Bilirubin Negative (NEGATIVE) Urine Urobilinogen 0.2 (0.2) E.U./dL Ur Leukocyte Esterase Trace H (NEGATIVE) Urine RBC 30-100/hpf H (0-5/HPF) Urine WBC 0-1/hpf (0-5/HPF) Ur Squamous Epith Cells None seen Urine Bacteria None seen (None) Ur Culture Indicated? Specimen cultured Micro UA Comment Not Reportable Discharge Plan Departure Patient Disposition: Home Clinical Impression: Vaginal bleeding, DUB (dysfunctional uterine bleeding) Discharge Date/Time: 01/18/18 17:11 Interventions: ED Discharge Assessment Last Done: 01/18/18 17:11 Instructions: DI for Vaginal Bleeding Activity Restrictions/Additional Instructions: You are having abnormal vaginal bleeding, which is concerning. Your blood counts are okay. I would like you to follow up with OBGYN. I have made an appointment for you on Wednesday this with Dr. Martinez and they would like you to be there at 12:45 p.m.. If you need to change that appointment you can call them at [phone]. Please be sure to follow up with an OBGYN. Please push fluids and rest. Come back to the emergency department if needed. Prescriptions: No Action albuterol sulfate [Proventil HFA] 90 MCG/PUFF HFA aerosol inhaler IH SEE INSTRUCTIONS Qty: 1 RF: 0 alendronate 10 mg tablet 10 mg PO DAILY RF: 0 amitriptyline 25 mg tablet 25 mg PO DAILY RF: 0 simvastatin 20 mg tablet 20 mg PO DAILY RF: 0 omeprazole 20 mg capsule,delayed release(DR/EC) 20 mg PO BID RF: 0 polyethylene glycol 3350 17 gram/dose powder RF: 0 Referrals: Renetta Martinez MD [Physician] - Kael Caballero MD [Primary Care Provider] - <Ava Ludwig DO - Last Filed: 01/19/18 07:59> Cosign ED Attending Daisy Attestation: I was immediately available in the department for consultation. Documentation has been reviewed. I agree with assessment and plan.
== END 2018-01-18 17:11 | disposition home or self-care (01) ==
PROVIDERS: Emergency Provider Nurse Practitioner Family; Family Provider Family Medicine; PCP Family Medicine
DX: N93.8 Other specified abnormal uterine and vaginal bleeding (principal)
CPT/HCPCS: 36415; 76830; 76856; 80053; 81001; 85025; 87086; 99283; 99284

== ENCOUNTER → 2018-08-16 15:13 | Outpatient (CLI) | payer MEDICARE, OTHER, SELFPAY ==
--- NOTE | 2018-08-16 | DI.RAD.S_ITS ---
PROCEDURE: XR CHEST 2V INDICATIONS: COUGH TECHNIQUE: 2 views of the chest were acquired. COMPARISON: [facility], CR, XR CHEST 1V, 10/13/2017, 7:14. FINDINGS: Surgical changes and devices: None. Lungs and pleura: Mild hyperinflation consistent with COPD. Lungs are clear. No pleural effusions or pneumothorax. Mediastinum: Mediastinal contours are normal. Heart size is normal. Bones and chest wall: No suspicious bony abnormalities. Soft tissues appear unremarkable. IMPRESSION: No acute cardiopulmonary disease. Suspect COPD. Dictated by: Tania Sosa M.D. on 08/16/2018 at 16:22 Approved by: Tania Sosa M.D. on 08/16/2018 at 16:23
== END ==
PROVIDERS: PCP Family Medicine; Visit Provider Family Medicine
DX: R05 Cough (principal)
CPT/HCPCS: 71046

== ENCOUNTER 2018-09-19 09:30 | Outpatient (RCR) | payer MEDICARE, OTHER, SELFPAY ==
--- NOTE | 2018-09-13 13:02 | PT.OPPOC ---
Current Diagnoses Peroneal tendinitis, left leg (09/13/18) Pain in left foot (09/13/18) Other abnormalities of gait and mobility (09/13/18) Provider Visit Care Team Role Provider Type Kael Caballero MD Primary Care Provider Non-Staff Specialty: Family Practice Address: [address] [place] [address], [address], [place], [address] Email: Chris Perez DPM Attending Provider Non-Staff Specialty: Podiatry Address: [address] [place] [address], [id number] Email: Plan Of Care PT-OP-T Assessment and Plan Start: 09/13/18 13:02 Freq: Status: Active Protocol: Document 09/13/18 13:02 JESI (Rec: 09/15/18 12:55 SAK [id number]) Physical Therapy Assessment Rehab Potential Rehabilitation Potential Good Evaluation Complexity Number of Personal Factors/Comorbidities 1-2 Number of Body Systems Impaired 3 Clinical Presentation at Evaluation Evolving Impairments Impairments Activity Tolerance Gait Pain Goals Two Impairment patient lacks HEP, self-care Care Home Goal (LTG) Patient to be independent with HEP and self-care to include ROM and strengthening for left foot and toes to improve alignment and biomechanics LTG Duration 11/14/18 Three Impairment gait dysfunction related to altered biomechanics Short Term Goal (STG) Patient to demonstrate ability to stand with weight even throughout foot, including use of toe pads to improve foot alignment and contact with the floor STG Duration 10/14/18 Care Home Goal (LTG) Patient able to walk with normal mechanics, without pain with appropriate support for toes and foot in shoe LTG Duration 11/14/18 One Impairment pain left foot, 4th MTP region 4/10 Short Term Goal (STG) Decrease pain to no greater than 2/10 with all daily activities STG Duration 10/14/18 Care Home Goal (LTG) Decrease watt to no greater than 1/10 with all usual activities including taking usual 2 mile walks LTG Duration 11/14/18 Assessment Summary Assessment Patient presents with left foot pain which appears related to altered alignment and biomechanics due to poor function of 5th digit, causing increased stress to 4th MTP joint. Feel she would benefit from skilled PT to decrease her pain and improve her alignment and biomechanics through patient education, ther ex, manual therapy and modalities as needed. Physical Therapy Plan Frequency and Duration Frequency of Treatment 2x/Week Duration of Treatment 8 wks Plan of Care Start Date 09/13/18 Plan of Care End Date 11/14/18 Therapeutic Interventions Therapeutic Interventions Aquatic Therapy Gait Training Home Exercise Program Joint Mobilizations Manual Therapy Neuromuscular Re-education Patient/Caregiver Education Self-Care/Home Management Taping Therapeutic Activities Therapeutic Exercises Modalities Cold Pack/Ice Massage Hot Packs Iontophoresis Ultrasound Plan of Care Dates Plan of Care Start Date 09/13/18 Plan of Care End Date 11/14/18 Please Sign and Return: I have reviewed this Plan of Care and certify that the skilled therapy services above are required to meet the patient?s needs. Physician Signature Date Printed Name and Credentials Clinical Instructor Signature Printed Name and Credentials
--- NOTE | 2018-09-13 13:02 | PT.OIE ---
Current Diagnoses Peroneal tendinitis, left leg (09/13/18) Pain in left foot (09/13/18) Other abnormalities of gait and mobility (09/13/18) Past Medical History (Last Reviewed 10/13/17 @ 07:46 by Joseph Sauceda DO) Chronic gastroesophageal reflux disease (Acute) Past Surgical History (Last Reviewed 10/13/17 @ 07:46 by Joseph Sauceda DO) No pertinent past surgical history (Acute) Provider Visit Care Team Role Provider Type Kael Caballero MD Primary Care Provider Non-Staff Specialty: Family Practice Address: [address] [place] [address], [address], [place], [address] Email: Chris Perez DPM Attending Provider Non-Staff Specialty: Podiatry Address: [address] [place] [address], [id number] Email: Physical Therapy Initial Evaluation PT-OP-A Visit Information Start: 09/13/18 13:02 Freq: Status: Active Protocol: Document 09/13/18 13:02 [facility] (Rec: 09/15/18 10:22 [facility] [id number]) Out-Patient Physical Therapy Visit Information Visit Information Visit Type Initial Evaluation Visit Start Time 13:00 Visit Stop Time 13:43 Total Visit Minutes 43 Visit Number 1 Number of FAMILY HEALTH NURSE PRACTITIONER Visits 0 Precautions Precautions [place], osteopenia PT-OP-B Current Condition Start: 09/13/18 13:02 Freq: Status: Active Protocol: Document 09/13/18 13:02 [facility] (Rec: 09/13/18 13:44 [facility] [id number]) Current Condition History of Current Condition Onset Date 3 yrs ago Current Complaints left foot pain limiting ability to walk History of Current Condition Has had bilateral neuromas surgically removed. Had bone removed from 5th digit left foot 2 yrs ago. Pain is at base of 4th toe. Using tennis ball to massage bottom of foot, wears compression sock ankle support, wears orthotic, no ice or heat. Wears running shoes at home for support. Able to take 2 mile walks daily prior to foot pain which is persistent and recently worsening. On feet most of day, doesn't stop activity until end of day. Wants to be able to do more travel with lots of walking. Prior Treatments and Tests No prior treatment. Future Testing and Treatments Planned none Treatment Goals Patient/Caregiver Goals eliminate pain and be able to walk without pain. Prior Functional Status Baseline Function- ADL's Independent Baseline Function- Mobility Independent Baseline Function- Gait no limitations Baseline Function- Work/School household activities unlimited Baseline Function- Recreation/Hobbies no restrictions Current Functional Impairments (Reported) Functional Limitations- ADL's standing activities painful Functional Limitations- Mobility/Gait limited due to pain; unable to take usual 2 mile walks Functional Limitations- Work/School able to do but painful Functional Limitations- Recreation/ painful (recreation and Hobbies hobbies are active, not sitting) Personal Factors Other Personal Factors That May Effect patient hyper per her report Therapy/Recovery , doesn't like to take time to take care of herself, too busy doing things. PT-OP-C Subjective Start: 09/13/18 13:02 Freq: Status: Active Protocol: Document 09/13/18 13:02 [facility] (Rec: 09/15/18 12:55 [facility] [id number]) Patient Questionnaires Lower Extremity Functional Scale LEFS Score 77 OP-PT Pain Assessment Location 4th MTP Intensity 4 Description Burning Pressure Tender Frequency Frequent Pain Aggravating Factors Activity Standing Walking Pain Alleviating Factors None Home Pain Medication Use Pain Medications Used No PT-OP-F Manual Assessment Start: 09/13/18 13:02 Freq: Status: Active Protocol: Document 09/13/18 13:02 [facility] (Rec: 09/15/18 12:55 [facility] [id number]) Manual Assessments Joint Mobility Assessment Joint Mobility Assessment WNL bilateral LE's. Tender 4th MTP Other Manual Assessments Other Manual Assessments skin intact, no increased redness or warmth PT-OP-J Posture/Palpation/Skin Start: 09/13/18 13:02 Freq: Status: Active Protocol: Document 09/13/18 13:02 [facility] (Rec: 09/15/18 12:55 [facility] [id number]) Posture Evaluation Position Standing Foot Arch (L) High Arch (R) High Arch Comments Posture Comments unable to contact floor with left 5th digit Palpation Assessment Location 4th MTP Palpation Findings Tenderness PT-OP-K Range of Motion Start: 09/13/18 13:02 Freq: Status: Active Protocol: Document 09/13/18 13:02 [facility] (Rec: 09/15/18 12:55 [facility] [id number]) Ankle and Foot Goniometric Range of Motion Ankle and Foot alberto Ankle/Foot ROM WFL Yes Ankle and Foot ROM Limitations Comments WNL except actively unable to move 5th digit PT-OP-M Strength Start: 09/13/18 13:02 Freq: Status: Active Protocol: Document 09/13/18 13:02 [facility] (Rec: 09/15/18 12:55 [facility] [id number]) Knee Strength Knee Manual Muscle Testing alberto Flexion (S2) 5 Normal Extension (L3) 5 Normal Ankle/Foot Strength Ankle and Foot Manual Muscle Testing alberto Dorsiflexion (L4) 5 Normal Plantarflexion (S1) 5 Normal Toe Strength Toe Manual Muscle Testing Left Flexion 5 Normal Extension 5 Normal Comments except pain with resistance 4th digit, no movement 5th digit Right Flexion 5 Normal Extension 5 Normal PT-OP-Q Treatments Start: 09/13/18 13:02 Freq: Status: Active Protocol: Document 09/13/18 13:02 [facility] (Rec: 09/15/18 12:55 [facility] [id number]) Self-Care/Home Management Treatment Education Patient Education Pain Management Activities Self-Care/Home Management Activities ice left foot obtain toe cusion or pad as discussed use toe separator to stretch toes, MTP joint PT-OP-R Modalities Start: 09/13/18 13:02 Freq: Status: Active Protocol: Document 09/13/18 13:02 [facility] (Rec: 09/15/18 12:55 [facility] [id number]) Hot Pack/Cold Pack Treatment Ice Massage Location left 4th MTP Patient Position Hooklying Treatment Duration (minutes) 5 Ultrasound Therapy Treatment 4th MTP joint Treatment Duration (minutes) 8 Patient Position Hooklying Coupling Medium Ultrasound Gel Applicator Size (cm2) 2 Frequency Setting (mHz) 3 Mode Setting Pulsed Duty Cycle 50% Intensity Setting (w/cm2) 1.0 PT-OP-T Assessment and Plan Start: 09/13/18 13:02 Freq: Status: Active Protocol: Document 09/13/18 13:02 [facility] (Rec: 09/15/18 12:55 [facility] [id number]) Physical Therapy Assessment Rehab Potential Rehabilitation Potential Good Evaluation Complexity Number of Personal Factors/Comorbidities 1-2 Number of Body Systems Impaired 3 Clinical Presentation at Evaluation Evolving Impairments Impairments Activity Tolerance Gait Pain Goals Two Impairment patient lacks HEP, self-care Wellness Specialist Goal (LTG) Patient to be independent with HEP and self-care to include ROM and strengthening for left foot and toes to improve alignment and biomechanics LTG Duration 11/14/18 Three Impairment gait dysfunction related to altered biomechanics Short Term Goal (STG) Patient to demonstrate ability to stand with weight even throughout foot, including use of toe pads to improve foot alignment and contact with the floor STG Duration 10/14/18 Shelter Goal (LTG) Patient able to walk with normal mechanics, without pain with appropriate support for toes and foot in shoe LTG Duration 11/14/18 One Impairment pain left foot, 4th MTP region 4/10 Short Term Goal (STG) Decrease pain to no greater than 2/10 with all daily activities STG Duration 10/14/18 Wellness Specialist Goal (LTG) Decrease watt to no greater than 1/10 with all usual activities including taking usual 2 mile walks LTG Duration 11/14/18 Assessment Summary Assessment Patient presents with left foot pain which appears related to altered alignment and biomechanics due to poor function of 5th digit, causing increased stress to 4th MTP joint. Feel she would benefit from skilled PT to decrease her pain and improve her alignment and biomechanics through patient education, ther ex, manual therapy and modalities as needed. Physical Therapy Plan Frequency and Duration Frequency of Treatment 2x/Week Duration of Treatment 8 wks Plan of Care Start Date 09/13/18 Plan of Care End Date 11/14/18 Therapeutic Interventions Therapeutic Interventions Aquatic Therapy Gait Training Home Exercise Program Joint Mobilizations Manual Therapy Neuromuscular Re-education Patient/Caregiver Education Self-Care/Home Management Taping Therapeutic Activities Therapeutic Exercises Modalities Cold Pack/Ice Massage Hot Packs Iontophoresis Ultrasound
--- NOTE | 2018-09-19 17:35 | PT.OTN ---
Current Diagnoses Peroneal tendinitis, left leg (09/19/18) Pain in left foot (09/19/18) Other abnormalities of gait and mobility (09/19/18) Physical Therapy Treatment Note PT-OP-A Visit Information Start: 09/13/18 13:02 Freq: Status: Active Protocol: Document 09/19/18 09:29 [facility] (Rec: 09/19/18 10:20 [facility] [id number]) Out-Patient Physical Therapy Visit Information Visit Information Visit Type Treatment Note Visit Start Time 09:30 Visit Stop Time 10:16 Total Visit Minutes 46 Visit Number 2 Number of REINFORCING STEEL WORKER Visits 0 Precautions Precautions [place], osteopenia PT-OP-B Current Condition Start: 09/13/18 13:02 Freq: Status: Active Protocol: Document 09/13/18 13:02 [facility] (Rec: 09/13/18 13:44 [facility] [id number]) Current Condition History of Current Condition Onset Date 3 yrs ago Current Complaints left foot pain limiting ability to walk History of Current Condition Has had bilateral neuromas surgically removed. Had bone removed from 5th digit left foot 2 yrs ago. Pain is at base of 4th toe. Using tennis ball to massage bottom of foot, wears compression sock ankle support, wears orthotic, no ice or heat. Wears running shoes at home for support. Able to take 2 mile walks daily prior to foot pain which is persistent and recently worsening. On feet most of day, doesn't stop activity until end of day. Wants to be able to do more travel with lots of walking. Prior Treatments and Tests No prior treatment. Future Testing and Treatments Planned none Treatment Goals Patient/Caregiver Goals eliminate pain and be able to walk without pain. Prior Functional Status Baseline Function- ADL's Independent Baseline Function- Mobility Independent Baseline Function- Gait no limitations Baseline Function- Work/School household activities unlimited Baseline Function- Recreation/Hobbies no restrictions Current Functional Impairments (Reported) Functional Limitations- ADL's standing activities painful Functional Limitations- Mobility/Gait limited due to pain; unable to take usual 2 mile walks Functional Limitations- Work/School able to do but painful Functional Limitations- Recreation/ painful (recreation and Hobbies hobbies are active, not sitting) Personal Factors Other Personal Factors That May Effect patient hyper per her report Therapy/Recovery , doesn't like to take time to take care of herself, too busy doing things. PT-OP-C Subjective Start: 09/13/18 13:02 Freq: Status: Active Protocol: Document 09/19/18 09:29 [facility] (Rec: 09/19/18 17:23 [facility] [id number]) OP-PT Subjective Patient Comments Patient Comments Compliant to HEP, no pain. Pleased with progress. Denies swelling Patient Reported Progress Improving PT-OP-F Manual Assessment Start: 09/13/18 13:02 Freq: Status: Active Protocol: Document 09/13/18 13:02 [facility] (Rec: 09/15/18 12:55 [facility] [id number]) Manual Assessments Joint Mobility Assessment Joint Mobility Assessment WNL bilateral LE's. Tender 4th MTP Other Manual Assessments Other Manual Assessments skin intact, no increased redness or warmth PT-OP-J Posture/Palpation/Skin Start: 09/13/18 13:02 Freq: Status: Active Protocol: Document 09/13/18 13:02 [facility] (Rec: 09/15/18 12:55 [facility] [id number]) Posture Evaluation Position Standing Foot Arch (L) High Arch (R) High Arch Comments Posture Comments unable to contact floor with left 5th digit Palpation Assessment Location 4th MTP Palpation Findings Tenderness PT-OP-K Range of Motion Start: 09/13/18 13:02 Freq: Status: Active Protocol: Document 09/13/18 13:02 [facility] (Rec: 09/15/18 12:55 [facility] [id number]) Ankle and Foot Goniometric Range of Motion Ankle and Foot alberto Ankle/Foot ROM WFL Yes Ankle and Foot ROM Limitations Comments WNL except actively unable to move 5th digit PT-OP-M Strength Start: 09/13/18 13:02 Freq: Status: Active Protocol: Document 09/13/18 13:02 [facility] (Rec: 09/15/18 12:55 [facility] [id number]) Knee Strength Knee Manual Muscle Testing alberto Flexion (S2) 5 Normal Extension (L3) 5 Normal Ankle/Foot Strength Ankle and Foot Manual Muscle Testing alberto Dorsiflexion (L4) 5 Normal Plantarflexion (S1) 5 Normal Toe Strength Toe Manual Muscle Testing Left Flexion 5 Normal Extension 5 Normal Comments except pain with resistance 4th digit, no movement 5th digit Right Flexion 5 Normal Extension 5 Normal PT-OP-Q Treatments Start: 09/13/18 13:02 Freq: Status: Active Protocol: Document 09/19/18 09:29 [facility] (Rec: 09/19/18 17:35 [facility] [id number]) Cardio Equipment Recumbent Elliptical (Biodex) Duration (Minutes) 5 Resistance 1 Other emphasis on LE alignment Therapeutic Exercises Supine Exercises HC stretch Side bilateral Equipment Used strap Reps/Minutes 2x30 Sitting Exercises olga pick-up Side bilateral Reps/Minutes 10x towel scrunch Side bilateral Reps/Minutes 10x Standing Exercises toe flexor stretch Side bilateral Reps/Minutes 2x30 ea tandem stand Side bilateral Reps/Minutes 2x30 ea Comments emphasis on full foot contact SLS Side bilateral Reps/Minutes 2x10 ea Comments emphasis on full foot contact HC stretch Side bilateral Reps/Minutes 2x30 ea PT-OP-R Modalities Start: 09/13/18 13:02 Freq: Status: Active Protocol: Document 09/19/18 09:29 [facility] (Rec: 09/19/18 17:35 [facility] [id number]) Hot Pack/Cold Pack Treatment Ice Massage Location left 4th MTP Patient Position Hooklying Treatment Duration (minutes) 5 Ultrasound Therapy Treatment 4th MTP joint Treatment Duration (minutes) 8 Patient Position Hooklying Coupling Medium Ultrasound Gel Applicator Size (cm2) 2 Frequency Setting (mHz) 3 Mode Setting Pulsed Duty Cycle 50% Intensity Setting (w/cm2) 1.0 PT-OP-T Assessment and Plan Start: 09/13/18 13:02 Freq: Status: Active Protocol: Document 09/19/18 09:29 [facility] (Rec: 09/19/18 10:20 [facility] [id number]) Physical Therapy Assessment Goals Two Impairment patient lacks HEP, self-care Custodial Goal (LTG) Patient to be independent with HEP and self-care to include ROM and strengthening for left foot and toes to improve alignment and biomechanics LTG Duration 11/14/18 Three Impairment gait dysfunction related to altered biomechanics Short Term Goal (STG) Patient to demonstrate ability to stand with weight even throughout foot, including use of toe pads to improve foot alignment and contact with the floor STG Duration 10/14/18 Custodial Goal (LTG) Patient able to walk with normal mechanics, without pain with appropriate support for toes and foot in shoe LTG Duration 11/14/18 One Impairment pain left foot, 4th MTP region 4/10 Short Term Goal (STG) Decrease pain to no greater than 2/10 with all daily activities STG Duration 10/14/18 Custodial Goal (LTG) Decrease watt to no greater than 1/10 with all usual activities including taking usual 2 mile walks LTG Duration 11/14/18 Assessment Summary Assessment Patient reporting some decrease in symptoms left foot , reports right foot hurts also, but has long history of foot pain and she states she just often tries to ignore it. Also c/o cramping in feet at night. Physical Therapy Plan Frequency and Duration Frequency of Treatment 2x/Week Duration of Treatment 8 wks Plan of Care Start Date 09/13/18 Plan of Care End Date 11/14/18 Therapeutic Interventions Therapeutic Interventions Aquatic Therapy Gait Training Home Exercise Program Joint Mobilizations Manual Therapy Neuromuscular Re-education Patient/Caregiver Education Self-Care/Home Management Taping Therapeutic Activities Therapeutic Exercises Modalities Cold Pack/Ice Massage Hot Packs Iontophoresis Ultrasound
--- NOTE | 2019-01-11 11:02 | PT.OPDS ---
Current Diagnoses Peroneal tendinitis, left leg (09/19/18) Pain in left foot (09/19/18) Other abnormalities of gait and mobility (09/19/18) Visit Care Team Role Provider Type Kael Caballero MD Primary Care Provider Non-Staff Specialty: Family Practice Address: [address] [place] [address], [address], [place], [address] Email: Chris Perez DPM Attending Provider Non-Staff Specialty: Podiatry Address: [address] [place] [address], [id number] Email: Visit Number Visit Number 2 Discharge Summary PT-OP-B Current Condition Start: 09/13/18 13:02 Freq: Status: Active Protocol: Document 09/13/18 13:02 [facility] (Rec: 09/13/18 13:44 [facility] [id number]) Current Condition History of Current Condition Onset Date 3 yrs ago Current Complaints left foot pain limiting ability to walk History of Current Condition Has had bilateral neuromas surgically removed. Had bone removed from 5th digit left foot 2 yrs ago. Pain is at base of 4th toe. Using tennis ball to massage bottom of foot, wears compression sock ankle support, wears orthotic, no ice or heat. Wears running shoes at home for support. Able to take 2 mile walks daily prior to foot pain which is persistent and recently worsening. On feet most of day, doesn't stop activity until end of day. Wants to be able to do more travel with lots of walking. Prior Treatments and Tests No prior treatment. Future Testing and Treatments Planned none Treatment Goals Patient/Caregiver Goals eliminate pain and be able to walk without pain. Prior Functional Status Baseline Function- ADL's Independent Baseline Function- Mobility Independent Baseline Function- Gait no limitations Baseline Function- Work/School household activities unlimited Baseline Function- Recreation/Hobbies no restrictions Current Functional Impairments (Reported) Functional Limitations- ADL's standing activities painful Functional Limitations- Mobility/Gait limited due to pain; unable to take usual 2 mile walks Functional Limitations- Work/School able to do but painful Functional Limitations- Recreation/ painful (recreation and Hobbies hobbies are active, not sitting) Personal Factors Other Personal Factors That May Effect patient hyper per her report Therapy/Recovery , doesn't like to take time to take care of herself, too busy doing things. PT-OP-C Subjective Start: 09/13/18 13:02 Freq: Status: Active Protocol: Document 09/19/18 09:29 [facility] (Rec: 09/19/18 17:23 [facility] [id number]) OP-PT Subjective Patient Comments Patient Comments Compliant to HEP, no pain. Pleased with progress. Denies swelling Patient Reported Progress Improving PT-OP-F Manual Assessment Start: 09/13/18 13:02 Freq: Status: Active Protocol: Document 09/13/18 13:02 [facility] (Rec: 09/15/18 12:55 [facility] [id number]) Manual Assessments Joint Mobility Assessment Joint Mobility Assessment WNL bilateral LE's. Tender 4th MTP Other Manual Assessments Other Manual Assessments skin intact, no increased redness or warmth PT-OP-J Posture/Palpation/Skin Start: 09/13/18 13:02 Freq: Status: Active Protocol: Document 09/13/18 13:02 [facility] (Rec: 09/15/18 12:55 [facility] [id number]) Posture Evaluation Position Standing Foot Arch (L) High Arch,(R) High Arch Comments Posture Comments unable to contact floor with left 5th digit Palpation Assessment Location 4th MTP Palpation Findings Tenderness PT-OP-K Range of Motion Start: 09/13/18 13:02 Freq: Status: Active Protocol: Document 09/13/18 13:02 [facility] (Rec: 09/15/18 12:55 [facility] [id number]) Ankle and Foot Goniometric Range of Motion Ankle and Foot alberto Ankle/Foot ROM WFL Yes Ankle and Foot ROM Limitations Comments WNL except actively unable to move 5th digit PT-OP-M Strength Start: 09/13/18 13:02 Freq: Status: Active Protocol: Document 09/13/18 13:02 [facility] (Rec: 09/15/18 12:55 [facility] [id number]) Knee Strength Knee Manual Muscle Testing alberto Flexion (S2) 5 Normal Extension (L3) 5 Normal Ankle/Foot Strength Ankle and Foot Manual Muscle Testing alberto Dorsiflexion (L4) 5 Normal Plantarflexion (S1) 5 Normal Toe Strength Toe Manual Muscle Testing Left Flexion 5 Normal Extension 5 Normal Comments except pain with resistance 4th digit, no movement 5th digit Right Flexion 5 Normal Extension 5 Normal PT-OP-T Assessment and Plan Start: 09/13/18 13:02 Freq: Status: Active Protocol: Document 01/11/19 11:01 [facility] (Rec: 01/11/19 11:02 [facility] [id number]) Physical Therapy Plan Discharge Physical Therapy Discharge Reasons No Longer Attending PT
== END 2018-09-19 10:30 ==
LOC: PHYS 09:30
PROVIDERS: PCP Family Medicine; Visit Provider Podiatrist
DX: M79.672 Pain in left foot (principal); M76.72 Peroneal tendinitis, left leg; R26.89 Other abnormalities of gait and mobility
CPT/HCPCS: 97035; 97110; 97162; 97535

== ENCOUNTER → 2018-12-13 16:50 | Outpatient (CLI) | payer MEDICARE, OTHER, SELFPAY ==
--- NOTE | 2018-12-13 | DI.MG.S_ITS ---
BILATERAL DIGITAL SCREENING MAMMOGRAM 3D/2D WITH CAD: 12/13/2018 CLINICAL: Routine screening. Family history of breast cancer. Comparison is made to exams dated: 12/08/2017 mammogram, 12/04/2016 mammogram - [facility], and 10/08/2015 mammogram - [facility]. The tissue of both breasts is heterogeneously dense. This may lower the sensitivity of mammography. Current study was also evaluated with a Computer Aided Detection (CAD) system. There is an asymmetry in the left breast posterior depth medial region seen on the craniocaudal view only. No other significant masses, calcifications, or other findings are seen in either breast. IMPRESSION: INCOMPLETE: NEEDS ADDITIONAL IMAGING EVALUATION The asymmetry in the left breast is indeterminate. Additional views with possible ultrasound are recommended. This exam was interpreted at Station ID: [id number]. NOTE: For mammograms, a report in lay terms will be sent to the patient. Approximately 15% of breast malignancies will not be visualized mammographically. In the management of a palpable breast mass, a negative mammogram must not discourage biopsy of a clinically suspicious lesion. Electronically Signed By: Ev ferrell/ronnie:12/14/2018 07:55:58 letter sent: Additional Imaging Needed ACR BI-RADS Category 0: Incomplete [id number]
== END ==
PROVIDERS: PCP Family Medicine; Visit Provider Family Medicine
DX: Z12.31 Encounter for screening mammogram for malignant neoplasm of breast (principal); Z80.3 Family history of malignant neoplasm of breast
CPT/HCPCS: 77063; 77067

== ENCOUNTER → 2018-12-28 14:14 | Outpatient (CLI) | payer MEDICARE, OTHER, SELFPAY ==
--- NOTE | 2018-12-28 | DI.MG.S_ITS ---
UNILATERAL LEFT DIGITAL DIAGNOSTIC MAMMOGRAM 3D/2D WITH ADDITIONAL VIEWS: 12/28/2018 CLINICAL: Additional evaluation requested from prior study. Comparison is made to exams dated: 12/13/2018 mammogram, 12/08/2017 mammogram, and 12/04/2016 mammogram - [facility] [place] [facility]. The tissue of left breast is heterogeneously dense. This may lower the sensitivity of mammography. The previously described asymmetry in the left breast posterior depth medial region seen on the craniocaudal view only is no longer seen. This is consistent with summation artifact. No other significant masses or calcifications are seen in the breast. IMPRESSION: The previously described asymmetry disperses with additional views and is consistent with summation artifact. There is no mammographic evidence of malignancy. A 1 year screening mammogram is recommended. This exam was interpreted at Station ID: [id number]. NOTE: For mammograms, a report in lay terms will be sent to the patient. Approximately 15% of breast malignancies will not be visualized mammographically. In the management of a palpable breast mass, a negative mammogram must not discourage biopsy of a clinically suspicious lesion. Electronically Signed By: Amos mederos/:12/28/2018 14:40:50 letter sent: Normal Exam ACR BI-RADS Category 2: Benign Finding(s) 3342F
== END ==
PROVIDERS: PCP Family Medicine; Visit Provider Family Medicine
DX: R92.8 Other abnormal and inconclusive findings on diagnostic imaging of breast (principal)
CPT/HCPCS: 77065; G0279

== ENCOUNTER → 2019-08-15 09:39 | Outpatient (CLI) | payer MEDICARE, OTHER, SELFPAY ==
--- NOTE | 2019-08-15 09:42 | DI.RAD.S_ITS ---
PROCEDURE: XR WRIST RT MIN 3V INDICATIONS: Right hand and wrist pain TECHNIQUE: 4 views of the wrist were acquired. COMPARISON: None. FINDINGS: Bones: No fractures or dislocations. No suspicious bony lesions. Echogenicity of Soft tissues: No suspicious soft tissue calcifications. IMPRESSION: Mild degenerative changes. If the patient's pain or other symptoms persist, consider further evaluation with MRI Dictated by: Peter Baker M.D. on 08/15/2019 at 12:58 Approved by: Peter Baker M.D. on 08/15/2019 at 13:00
--- NOTE | 2019-08-15 09:42 | DI.RAD.S_ITS ---
PROCEDURE: XR HAND RT MIN 3V INDICATIONS: Right hand and wrist pain TECHNIQUE: 3 views of the hand(s) acquired. COMPARISON: None. FINDINGS: Bones: No fractures or dislocations. Carpal bones are normally aligned. No suspicious bony lesions. Chronic appearing possible avulsion fracture fragment seen at the dorsal aspect of the PIP joint of the little finger. There is also 1 mm amorphous calcification projecting at the volar aspect of the DIP joint of the ring finger. Marginal lucency projecting at the PIP joint of the middle finger. Soft tissues: No suspicious soft tissue calcifications. IMPRESSION: Small osseous and calcific fragments seen at the PIP joint of the little finger and the DIP joint of the ring finger, potentially small fracture fragments however radiographically these appear chronic. Please correlate to point tenderness. If the patient's pain or other symptoms persist, consider further evaluation with MRI Dictated by: Peter Baker M.D. on 08/15/2019 at 11:49 Approved by: Peter Baker M.D. on 08/15/2019 at 11:53
== END ==
PROVIDERS: PCP Family Medicine; Referring Provider Family Medicine; Visit Provider Family Medicine
DX: M25.531 Pain in right wrist (principal); M79.641 Pain in right hand
CPT/HCPCS: 73110; 73130

== ENCOUNTER → 2019-08-28 10:54 | Outpatient (CLI) | payer MEDICARE, OTHER, SELFPAY ==
[2019-08-29 15:38] LABS: COVID19 Sendout Not Detected (Not Detect)
== END ==
PROVIDERS: PCP Family Medicine; Visit Provider Physician Assistant
DX: Z01.812 Encounter for preprocedural laboratory examination (principal)
CPT/HCPCS: 87635

== ENCOUNTER → 2019-08-31 14:50 | Outpatient (CLI) | payer MEDICARE, OTHER, SELFPAY ==
--- NOTE | 2019-09-06 09:14 | PM.PFT.1 ---
Pulmonary Function Test Referral & Results Date Patient Seen: 08/31/19 Requesting provider: Zacarias Mcqueen Indication: Dyspnea Results: The spirometry demonstrates an FVC of 3.76 L which is 99% of predicted. The FEV1 was measured at 2.66 L which is 96% of predicted. The FEV1/FVC ratio was 71 which is 96% of predicted. Following the administration of bronchodilator there was no appreciable change to above normal numbers. Lung volumes show an SVC of 3.78 L which is 93% of predicted. The diffusing capacity was measured at 26.97 which is 97% of predicted. The maximum voluntary ventilation was normal Interpretation: This study demonstrates normal pulmonary function
== END ==
PROVIDERS: PCP Family Medicine; Referring Provider Family Medicine; Visit Provider Family Medicine
DX: R06.00 Dyspnea, unspecified (principal); J98.8 Other specified respiratory disorders
CPT/HCPCS: 94060; 94726; 94729

== ENCOUNTER → 2019-09-07 14:08 | Outpatient (CLI) | payer MEDICARE, OTHER, SELFPAY ==
--- NOTE | 2019-09-07 | DI.RAD.S_ITS ---
PROCEDURE: XR CHEST 2V INDICATIONS: Dyspnea TECHNIQUE: 2 views of the chest were acquired. COMPARISON: [facility], CR, XR CHEST 2V, 08/16/2018, 15:19. FINDINGS: Surgical changes and devices: None. Lungs and pleura: Lungs are clear. No pleural effusions or pneumothorax. Mediastinum: Mediastinal contours are normal. Heart size is normal. Bones and chest wall: No suspicious bony abnormalities. Soft tissues appear unremarkable. IMPRESSION: No acute cardiopulmonary process demonstrated radiographically. Dictated by: Matthew Thompson M.D. on 09/07/2019 at 14:34 Approved by: Matthew Thompson M.D. on 09/07/2019 at 14:35
== END ==
PROVIDERS: PCP Family Medicine; Referring Provider Family Medicine; Visit Provider Family Medicine
DX: R06.00 Dyspnea, unspecified (principal)
CPT/HCPCS: 71046

== ENCOUNTER → 2019-10-03 12:28 | Outpatient (CLI) | payer MEDICARE, OTHER, SELFPAY ==
[2019-10-03 12:56] LABS: BUN Creatinine Ratio 24.2 (6-22); Blood Urea Nitrogen 16 mg/dL (7-17); Calcium 9.5 mg/dL (8.4-10.2); Carbon Dioxide 28 mmol/L (22-32); Chloride 105 mmol/L (98-107); Estimated Glomerular Filt Rate > 60.0 mL/min (>60); Glucose 126 mg/dL (80-110); HEMOLYSIS < 15 (0-50); Potassium 4.6 mmol/L (3.4-5.1); Sodium 137 mmol/L (137-145)
--- NOTE | 2019-10-03 13:03 | DI.CT.S_ITS ---
PROCEDURE: CT ANGIO CHEST PE PROTOCOL INDICATIONS: PLEURISY TECHNIQUE: After the administration of intravenous contrast, 2 mm thick sections acquired from the pulmonary apices to the posterior costophrenic angles. 3-dimensional maximum intensity projection (MIP) coronal and sagittal reformats were then acquired through the thorax. For radiation dose reduction, the following was used: automated exposure control, adjustment of mA and/or kV according to patient size. COMPARISON: [facility], CR, XR CHEST 2V, 09/07/2019, 14:07. FINDINGS: Image quality: Excellent. Pulmonary arteries: Pulmonary arteries are normal in size, and demonstrate no intraluminal filling defects to suggest central pulmonary embolism. Lungs and pleura: There are multiple lung nodules as listed below. Nodule #1: 4 x 8 mm; RUL; series 5, image 69; solid. Nodule #2: 3 mm; RUL; series 5, image 129; solid. Nodule #3: 3 mm; R major fissure; series 5, image 141; solid. Nodule #4: 3 mm; SHIRLEY; series 5, image 60; solid. No acute pulmonary opacity. No pleural effusions or pneumothorax. Central and peripheral airways are patent. Mediastinum: Heart size is normal, without pericardial effusion. No mediastinal or hilar adenopathy. Thoracic aorta is normal in caliber and enhancement. Esophagus is normal in caliber, without hiatal hernia. Bones and chest wall: No suspicious bony lesions. Ribs and thoracic spine appear intact throughout. Thyroid gland is normal. No axillary or supraclavicular adenopathy. Abdomen: Visualized upper abdominal solid organs appear normal in the early arterial phase of enhancement. IMPRESSION: 1. No evidence for pulmonary embolism. 2. Multiple pulmonary nodules are present bilaterally. Please see enclosed follow-up recommendation. Fleischner Society criteria for SOLID lung nodule followup. Nodule size (mm)Low-risk patientHigh-risk patient?4No follow-up neededFollow-up at 12 mo; if no change, no further follow-up>5-1Avtdee-bl CT at 12 mo; if no change, no further follow-up needed.Initial follow-up CT at 6-12 mo, then 18-24 mo if no change. >6-8Initial follow-up CT at 6-12 mo, then 18-24 mo if no change. Initial follow-up CT at 3-6 mo, then 9-12 mo and 24 mo if no change. >8Follow-up CT at 3, 9, 24 mo. Or PET and/or biopsy.Same as for low-risk pts. Fleischner Society criteria for SUB-SOLID lung nodule followup. Solitary pure ground-glass nodules5 mm or lessNo followup needed. >5 mm3 mo follow-up CT to confirm persistence. Then annual CT for 3 years. Part-solid nodules3 mo follow-up CT to confirm persistence. If persistent with solid component <5 mm, annual CT for at least 3 years. If solid component is 5 mm or more, biopsy or surgical resection. Consider PET-CT for lesions > 10 mm. Multiple sub-solid nodulesPure ground glass nodules [address] at 2 and 4 years. Pure ground glass nodules >5 mm without dominant lesion. [address] to confirm persistence, then annual followup CT for at least 3 years. Dominant nodule(s) with part-solid or solid component. [address] to confirm persistence. If persistent, consider biopsy or surgical resection, darren if lesions have >5 mm solid component. Dictated by: Tania Sosa M.D. on 10/03/2019 at 13:53 Approved by: Tania Sosa M.D. on 10/03/2019 at 14:10
== END ==
PROVIDERS: PCP Family Medicine; Referring Provider Internal Medicine; Visit Provider Internal Medicine
DX: R09.1 Pleurisy (principal); J86.9 Pyothorax without fistula; R91.8 Other nonspecific abnormal finding of lung field
CPT/HCPCS: 36415; 71275; 80048; Q9967

== ENCOUNTER → 2019-11-07 13:35 | Outpatient (CLI) | payer MEDICARE, OTHER, SELFPAY ==
[2019-11-08 18:43] LABS: COVID19 Sendout Not Detected (Not Detect)
== END ==
PROVIDERS: PCP Family Medicine; Visit Provider Physician Assistant
DX: Z11.59 Encounter for screening for other viral diseases (principal)
CPT/HCPCS: 87635

== ENCOUNTER → 2020-01-01 10:23 | Outpatient (CLI) | payer MEDICARE, OTHER, SELFPAY ==
[2020-01-01 14:16] LABS: COVID19 -Nasal RAPID Negative (Negative)
== END ==
PROVIDERS: PCP Family Medicine; Visit Provider Physician Assistant
DX: Z11.59 Encounter for screening for other viral diseases (principal)
CPT/HCPCS: 87635

== ENCOUNTER → 2020-02-07 16:06 | Outpatient (CLI) | payer MEDICARE, OTHER, SELFPAY ==
--- NOTE | 2020-02-07 16:08 | DI.MG.S_ITS ---
BILATERAL DIGITAL SCREENING MAMMOGRAM 3D/2D WITH CAD: 02/07/2020 CLINICAL: Routine screening. Family history of breast cancer. Comparison is made to exams dated: 12/28/2018 mammogram, 12/13/2018 mammogram, 12/08/2017 mammogram, and 12/04/2016 mammogram - [facility]. The tissue of both breasts is heterogeneously dense. This may lower the sensitivity of mammography. Current study was also evaluated with a Computer Aided Detection (CAD) system. No significant masses, calcifications, or other findings are seen in either breast. There has been no significant interval change. IMPRESSION: NEGATIVE There is no mammographic evidence of malignancy. A 1 year screening mammogram is recommended. This exam was interpreted at Station ID: [id number]. NOTE: For mammograms, a report in lay terms will be sent to the patient. Approximately 15% of breast malignancies will not be visualized mammographically. In the management of a palpable breast mass, a negative mammogram must not discourage biopsy of a clinically suspicious lesion. Electronically Signed By: Amos lewis/ronnie:02/07/2020 16:32:48 letter sent: Normal Exam ACR BI-RADS Category 1: Negative 3341F
== END ==
PROVIDERS: PCP Family Medicine; Referring Provider Family Medicine; Visit Provider Family Medicine
DX: Z12.31 Encounter for screening mammogram for malignant neoplasm of breast (principal); Z80.3 Family history of malignant neoplasm of breast
CPT/HCPCS: 77063; 77067

== ENCOUNTER → 2020-03-25 09:50 | Outpatient (CLI) | payer MEDICARE, OTHER, SELFPAY ==
[2020-03-25 11:38] LABS: COVID19 -Nasal RAPID Negative (Negative)
== END ==
PROVIDERS: PCP Family Medicine; Visit Provider Physician Assistant
DX: Z01.812 Encounter for preprocedural laboratory examination (principal); Z20.822 Contact with and (suspected) exposure to COVID-19
CPT/HCPCS: 87635; C9803

== ENCOUNTER → 2020-08-07 09:02 | Outpatient (CLI) | payer MEDICARE, OTHER, SELFPAY ==
--- NOTE | 2020-08-07 | DI.RAD.S_ITS ---
PROCEDURE: XR HAND RT MIN 3V INDICATIONS: PAIN TECHNIQUE: 3 views of the hand(s) acquired. COMPARISON: [facility], CR, XR HAND RT MIN 3V, 08/15/2019, 8:42. FINDINGS: Bones: No fractures or dislocations. Carpal bones are normally aligned. No suspicious bony lesions. Soft tissues: No suspicious soft tissue calcifications. IMPRESSION: Mild arthritic changes at the interphalangeal joints distally and base of the 1st metacarpal but no trauma found. No erosive arthritis. Dictated by: Natanael Darling M.D. on 08/07/2020 at 10:54 Approved by: Natanael Darling M.D. on 08/07/2020 at 11:06
--- NOTE | 2020-08-07 09:05 | DI.RAD.S_ITS ---
PROCEDURE: XR WRIST RT MIN 3V INDICATIONS: right wrist pain TECHNIQUE: 4 views of the wrist were acquired. COMPARISON: [facility], , XR WRIST RT MIN 3V, 08/15/2019, 8:43. FINDINGS: Bones: No fractures or dislocations. No suspicious bony lesions. Scaphoid view: No trauma. Soft tissues: No suspicious soft tissue calcifications. IMPRESSION: Mild arthritic changes, no trauma found. Dictated by: Natanael Darling M.D. on 08/07/2020 at 11:07 Approved by: Natanael Darling M.D. on 08/07/2020 at 11:07
== END ==
PROVIDERS: PCP Family Medicine; Referring Provider Family Medicine; Visit Provider Family Medicine
DX: M25.531 Pain in right wrist (principal)
CPT/HCPCS: 73110; 73130

== ENCOUNTER → 2020-08-14 09:34 | Outpatient (CLI) | payer MEDICARE, OTHER, SELFPAY | PROVIDERS: PCP Family Medicine; Referring Provider Family Medicine; Visit Provider Family Medicine | DX: M85.88 Other specified disorders of bone density and structure, other site (principal); Z78.0 Asymptomatic menopausal state | CPT/HCPCS: 77080 ==

== ENCOUNTER → 2021-02-07 17:27 | Outpatient (CLI) | payer MEDICARE, OTHER, SELFPAY ==
--- NOTE | 2021-02-07 | DI.MG.S_ITS ---
BILATERAL DIGITAL SCREENING MAMMOGRAM 3D/2D WITH CAD: 02/07/2021 CLINICAL: Routine screening. Family history of breast cancer. Comparison is made to exams dated: 02/07/2020 mammogram, 12/13/2018 mammogram, and 12/08/2017 mammogram - [facility]. The tissue of both breasts is heterogeneously dense. This may lower the sensitivity of mammography. Current study was also evaluated with a Computer Aided Detection (CAD) system. No significant masses, calcifications, or other findings are seen in either breast. There has been no significant interval change. IMPRESSION: NEGATIVE There is no mammographic evidence of malignancy. A 1 year screening mammogram is recommended. This exam was interpreted at Station ID: [id number]. NOTE: For mammograms, a report in lay terms will be sent to the patient. Approximately 15% of breast malignancies will not be visualized mammographically. In the management of a palpable breast mass, a negative mammogram must not discourage biopsy of a clinically suspicious lesion. Electronically Signed By: Amos lewis/ronnie:02/10/2021 07:45:08 letter sent: Normal Exam ACR BI-RADS Category 1: Negative 3341F
== END ==
PROVIDERS: PCP Family Medicine; Referring Provider Family Medicine; Visit Provider Family Medicine
DX: Z12.31 Encounter for screening mammogram for malignant neoplasm of breast (principal); Z80.3 Family history of malignant neoplasm of breast
CPT/HCPCS: 77063; 77067

== ENCOUNTER → 2021-06-24 07:35 | Outpatient (CLI) | payer MEDICARE, OTHER, SELFPAY ==
[2021-06-24 08:49] LABS: Add Manual Diff / Slide Review NO; Basophils Absolute Auto 0 /uL (0-100); Eosinophils Absolute Auto 100 /uL (0-450); Eosinophils Percent Auto 2.2 % (2-4); Hematocrit 35.7 % (36-46); Hemoglobin 12.2 g/dL (12.0-16.0); Lymphocytes Absolute Auto 1200 /uL (1100-4500); Lymphocytes Percent Auto 30.6 % (25-40); Mean Corpuscular Hemoglobin 32.6 PG (26-34); Mean Corpuscular Volume 95.8 fL (80-100); Monocytes Absolute Auto 300 /uL (0-900); Neutrophils Absolute Auto 2300 /uL (1500-7000); Neutrophils Percent Auto 58.2 % (50-75); Platelet Count 196 X10^3/uL (150-400); Red Blood Cell Count 3.73 X10^6/uL (4.0-5.2); Red Cell Distribution Width 13.7 % (11.6-14.8); White Blood Cell Count 3.9 X10^3/uL (4.5-11.0)
[2021-06-24 09:00] LABS: Alanine Aminotransferase 25 IU/L (<35); Albumin 4.1 g/dL (3.5-5.0); Albumin Globulin Ratio 1.7 (1.0-2.8); Alkaline Phosphatase 48 U/L (38-126); Aspartate Aminotransferase 32 IU/L (14-36); BUN Creatinine Ratio 22.5 (6-22); Bilirubin Total 0.6 mg/dL (0.2-1.3); Blood Urea Nitrogen 16 mg/dL (7-17); Calcium 8.7 mg/dL (8.4-10.2); Carbon Dioxide 27 mmol/L (22-32); Chloride 108 mmol/L (98-107); Cholesterol 260 mg/dL (140-199); Estimated Glomerular Filt Rate > 60 mL/min (>60); Globulin 2.4 g/dL (1.7-4.1); Glucose 101 mg/dL (80-110); HDL Cholesterol 87 mg/dL (40-60); HEMOLYSIS < 15 (0-50); LDL Cholesterol Calculated 157 mg/dL (<100); Sodium 139 mmol/L (137-145); Total Protein 6.5 g/dL (6.3-8.2); Triglycerides 78 mg/dL (35-150); VLDL Cholesterol Calculated 16 mg/dL (2-30)
[2021-06-24 10:20] LABS: Thyroid Stimulating Hormone 0.501 uIU/mL (0.47-4.68)
== END ==
PROVIDERS: PCP Family Medicine; Referring Provider Family Medicine; Visit Provider Family Medicine
DX: E78.5 Hyperlipidemia, unspecified (principal); R73.03 Prediabetes
CPT/HCPCS: 36415; 80053; 80061; 84443; 85025

== ENCOUNTER → 2021-06-26 14:34 | Outpatient (CLI) | payer MEDICARE, OTHER, SELFPAY ==
[2021-06-26 17:21] LABS: Vitamin D 25 Hydroxy (D3) 95.1 ng/mL (30.0-100.0)
[2021-06-26 19:28] LABS: Magnesium 2.4 mg/dL (1.6-2.3)
[2021-06-26 20:13] LABS: Vitamin B12 773 pg/mL (239-931)
== END ==
PROVIDERS: PCP Family Medicine; Referring Provider Family Medicine; Visit Provider Family Medicine
DX: R53.83 Other fatigue (principal)
CPT/HCPCS: 36415; 82306; 82607; 83735

== ENCOUNTER → 2021-12-08 10:13 | Outpatient (CLI) | payer MEDICARE, OTHER, SELFPAY ==
[2021-12-08 12:21] LABS: COVID19 -Nasal RAPID Negative (Negative)
== END ==
PROVIDERS: PCP Family Medicine; Visit Provider Surgery
DX: Z20.822 Contact with and (suspected) exposure to COVID-19 (principal); Z01.812 Encounter for preprocedural laboratory examination
CPT/HCPCS: 87635; C9803

== ENCOUNTER 2021-12-09 07:05 | Day surgery (SDC) | payer MEDICARE, OTHER, SELFPAY ==
[2021-12-09] VITALS (11 sets, daily range): BP systolic 94–138; BP diastolic 36–70; PULSE 55–90; RESP 8–18; TEMP 35.8–36.7; O2SAT 98–100; BMI 18.1
[2021-12-09] MEDS: LACTATED RINGERS 1,000 ML 200 ML IV (07:46)
--- NOTE | 2021-12-09 08:24 | PM.HP.1 ---
History of Present Illness History of Present Illness Date Patient Seen: 12/09/21 Chief complaint: SCREENING COLONOSCOPY W/POSS BX Narrative: The patient presents for colorectal screening. Her father has a history of colon cancer. Last colonoscopy 6 years ago normal outside institution. On further history denies any recent new gastrointestinal symptoms. No abdominal pain, loss of appetite, unexplained weight loss, change in bowel habits, diarrhea, constipation, melena, hematochezia, or bright red blood per rectum. Patient History Medical History Chronic gastroesophageal reflux disease Surgical History No pertinent past surgical history Family & Social History Social History: household members spouse Tobacco & Substance use: Smoking Status Never smoker alcohol intake frequency a few times a week Substance Use Type does not use Meds Home Medications and Allergies Home Medications Medication Instructions Recorded Confirmed Type omeprazole 20 mg capsule,delayed 20 mg PO BID 01/18/18 12/09/21 History release Allergies Allergy/AdvReac Type Severity Reaction Status Date / Time Sulfa (Sulfonamide Allergy Unknown Verified 12/09/21 07:30 Antibiotics) [SULFA (SULFONAMIDE ANTIBIOTICS)] codeine Allergy Verified 12/09/21 07:30 Exam Vital Signs (past 8 hours): - 12/09/21 07:46 Temperature 98.1 F Pulse Rate 90 Respiratory Rate 16 Blood Pressure 138/70 Pulse Oximetry 100 Oxygen Delivery Method Room Air Oxygen Delivery Method Room Air Narrative Exam Narrative: General adult woman alert oriented no acute distress Abdomen soft nontender nondistended Assessment & Plan Assessment & Plan narrative: The patient requires colorectal screening secondary to family history of colon cancer and colonoscopy is recommended. Technical details were discussed. Risks, benefits, alternatives explained. Risks including but not limited to myocardial infarction, aspiration, bleeding, pain, missed lesion, incomplete examination, need for further radiographic studies, colonic perforation, and need for major abdominal surgery were discussed. All questions were answered to their satisfaction, and they are in agreement with this plan. Time Spent With Patient Critical Care time: I spent a total of [] minutes of critical care time on this patient's care today; this time is exclusive of procedural time.
--- NOTE | 2021-12-09 08:26 | PM.OP.COLON ---
Operative Date/Time/Diagnoses Date of procedure: 12/09/21 Time of procedure: 08:26 Pre-op diagnosis: Family History of colon cancer Post-op diagnosis: same Procedure & Clinicians Study performed: Colonoscopy Same procedure as scheduled: Yes Indications: Family history of colon cancer Surgeon: Juan Levi Procedure Notes Procedure in detail: Medications: Conscious sedation using 6mg IV midazolam and 200mcg IV of fentanyl The history and physical was performed/updated and the patient is ASA class is 2. The procedure was discussed in detail with the patient. Potential risks complications including infection, bleeding, missed diagnosis, perforation, need for surgery, and were explained. Their questions were answered and informed consent was obtained. Patient was brought to the procedure room and placed standard monitoring equipment. The patient's vital signs were monitored continuously throughout the entire procedure. Prior to starting time-out was performed. The patient was placed in the left lateral recumbent position. Procedural sedation was administered. Examination began with a thorough inspection of the perianal area there was no evidence of fissures, fistulae, external hemorrhoids or cutaneous malignancy. The colonoscopy scope was then placed into the anal canal and was advanced to the cecum, which was identified by the ileocecal valve, the appendiceal orifice and the confluence of the taenia. The scope was then slowly withdrawn examining colon thoroughly in all directions, irrigating it of any residual stool. FINDINGS 1. No masses or polyps 2. Tortuous colon The patient tolerated the procedure well. They will be discharged once criteria are met. The prep was of good/excellent quality. The withdrawl time was 8 minutes. The sedation time was 30 minutes. Impression: Normal colonoscopy Post-procedure Recommendations: Colonoscopy in 5 years Disposition: same day surgery
[2021-12-09] MEDS: MIDAZOLAM 5 MG/5 ML VIAL IV (09:06)
[2021-12-09] MEDS: fentaNYL 100 MCG/2 ML INJ IV (09:07)
== END 2021-12-09 10:47 | disposition home or self-care (01) ==
PROVIDERS: PCP Family Medicine; Referring Provider Surgery; Visit Provider Surgery
PROC: 0DJD8ZZ Inspection of Lower Intestinal Tract, Via Natural or Artificial Opening Endoscopic (ICD-10-PCS; CPT 45378; principal; 2021-12-09 08:30)
DX: Z12.11 Encounter for screening for malignant neoplasm of colon (principal); Z80.0 Family history of malignant neoplasm of digestive organs
CPT/HCPCS: G0105; 99152; 99153; J2250; J3010

== ENCOUNTER → 2022-02-18 11:22 | Outpatient (CLI) | payer MEDICARE, OTHER, SELFPAY ==
--- NOTE | 2022-02-18 | DI.MG.S_ITS ---
BILATERAL DIGITAL SCREENING MAMMOGRAM 3D/2D WITH CAD: 02/18/2022 CLINICAL: Routine screening. Family history of breast cancer. Comparison is made to exams dated: 02/07/2021 mammogram, 02/07/2020 mammogram, 12/28/2018 mammogram, and 12/13/2018 mammogram - [facility]. Both breasts are heterogeneously dense, which may obscure small masses (category c / 51-75% glandular tissue). Current study was also evaluated with a Computer Aided Detection (CAD) system. No significant masses, calcifications, or other findings are seen in either breast. There has been no significant interval change. IMPRESSION: NEGATIVE There is no mammographic evidence of malignancy. A 1 year screening mammogram is recommended. Based on the Tyrer Cuzick model (a risk assessment model) the patient's lifetime risk is 5.4% and her 10 year risk is 5.4%. According to the ACR, ACS, and NCCN guidelines, an annual breast MRI exam along with mammogram is recommended if the patient's lifetime risk is 20% or greater. This exam was interpreted at Station ID: [id number]. NOTE: For mammograms, a report in lay terms will be sent to the patient. Approximately 15% of breast malignancies will not be visualized mammographically. In the management of a palpable breast mass, a negative mammogram must not discourage biopsy of a clinically suspicious lesion. Electronically Signed By: Matthew Thompson M.D., jr/ronnie:02/18/2022 13:09:24 letter sent: Normal Exam ACR BI-RADS Category 1: Negative 3341F
== END ==
PROVIDERS: PCP Family Medicine; Referring Provider Family Medicine; Visit Provider Family Medicine
DX: Z12.31 Encounter for screening mammogram for malignant neoplasm of breast (principal); Z80.3 Family history of malignant neoplasm of breast
CPT/HCPCS: 77063; 77067

== ENCOUNTER → 2022-11-02 14:25 | Outpatient (CLI) | payer MEDICARE, OTHER, SELFPAY ==
--- NOTE | 2022-11-02 | DI.RAD.S_ITS ---
PROCEDURE: XR CHEST 2V INDICATIONS: COUGH TECHNIQUE: 2 views of the chest were acquired. COMPARISON: [facility], CR, XR CHEST 2V, 08/16/2018, 15:19. [facility], CR, XR CHEST 2V, 09/07/2019, 14:07. FINDINGS: Surgical changes and devices: None. Lungs and pleura: Lungs are clear. No pleural effusions or pneumothorax. Mediastinum: Mediastinal contours are normal. Heart size is normal. Bones and chest wall: No suspicious bony abnormalities. Soft tissues appear unremarkable. IMPRESSION: No acute cardiopulmonary abnormality is seen. Dictated by: Tania Sosa M.D. on 11/02/2022 at 16:01 Approved by: Tania Sosa M.D. on 11/02/2022 at 16:01
== END ==
PROVIDERS: PCP Family Medicine; Referring Provider Family Medicine; Visit Provider Family Medicine
DX: R05.3 Chronic cough (principal); R53.82 Chronic fatigue, unspecified
CPT/HCPCS: 71046

== ENCOUNTER → 2022-11-11 12:58 | Outpatient (CLI) | payer MEDICARE, OTHER, SELFPAY ==
--- NOTE | 2022-11-11 13:00 | DI.CT.S_ITS ---
PROCEDURE: CT CHEST W CON INDICATIONS: CHRONIC COUGH TECHNIQUE: After the administration of intravenous contrast, 5 mm thick sections acquired from the pulmonary apices to the posterior costophrenic angles. 1 mm axial lung, 5 mm thick coronal and sagittal reformats and 7 mm axial MIP were acquired. For radiation dose reduction, the following was used: automated exposure control, adjustment of mA and/or kV according to patient size. COMPARISON: [facility], CT, CT ANGIO CHEST PE PROTOCOL, 10/03/2019, 13:32. FINDINGS: Image quality: Excellent. Lungs and pleura: No acute air space opacities. No pleural effusions or pneumothorax. Mild bronchial thickening with a few regions of mucous impaction. Stable 5-6 millimeter solid nodule in the right upper lobe (series 3, image 77). Mediastinum: Heart size is normal. No pericardial effusion. No mediastinal or hilar adenopathy by size criteria. Thoracic aorta and central pulmonary arteries are normal in size. Esophagus is normal in caliber. No hiatal hernia. Bones and chest wall: No suspicious bony lesions. No vertebral body compression fractures. No axillary or supraclavicular adenopathy by size criteria. Thyroid gland is unremarkable . Abdomen: Visualized upper abdominal solid organs appear normal. Upper abdominal bowel loops are normal in caliber. IMPRESSION: Mild bronchial thickening with regions of mucous impaction, suggestive of bronchitis. Stable pulmonary nodule in the right upper lobe compared with 2019, which is statistically benign. Dictated by: Zana Yu M.D. on 11/11/2022 at 15:46 Approved by: Zana Yu M.D. on 11/11/2022 at 15:50
== END ==
PROVIDERS: PCP Family Medicine; Referring Provider Family Medicine; Visit Provider Family Medicine
DX: R05.3 Chronic cough (principal); R91.1 Solitary pulmonary nodule
CPT/HCPCS: 71260; Q9967

== ENCOUNTER 2022-12-02 13:30 | Emergency (ER) | payer MEDICARE, OTHER, SELFPAY ==
[2022-12-02 13:38] VITALS: BP 144/65; PULSE 79; RESP 18; TEMP 36.4; O2SAT 99; BMI 18.6
--- NOTE | 2022-12-02 14:28 | DI.RAD.S_ITS ---
PROCEDURE: XR CHEST 1V INDICATIONS: chest pain TECHNIQUE: One view of the chest was acquired. COMPARISON: [facility], CR, XR CHEST 2V, 11/02/2022, 14:36. FINDINGS: Surgical changes and devices: None. Lungs and pleura: Lungs are clear. No pleural effusions or pneumothorax. Mediastinum: Mediastinal contours appear normal. Heart size is normal. Bones and chest wall: No suspicious bony lesions. Overlying soft tissues appear unremarkable. IMPRESSION: No acute pulmonary process. Dictated by: Patricia Cain M.D. on 12/02/2022 at 15:19 Approved by: Patricia Cain M.D. on 12/02/2022 at 15:20
[2022-12-02 15:16] LABS: Add Manual Diff / Slide Review NO; Basophils Absolute Auto 0 /uL (0-100); Basophils Percent Auto 0.2 % (0-2); Eosinophils Absolute Auto 200 /uL (0-450); Hematocrit 37.2 % (36-46); Hemoglobin 12.8 g/dL (12.0-16.0); Lymphocytes Absolute Auto 1400 /uL (1100-4500); Lymphocytes Percent Auto 26.8 % (25-40); Mean Corpuscular HGB Conc 34.4 % (30-36); Mean Corpuscular Hemoglobin 32.9 PG (26-34); Mean Corpuscular Volume 95.5 fL (80-100); Monocytes Absolute Auto 300 /uL (0-900); Monocytes Percent Auto 6.1 % (3-14); Neutrophils Absolute Auto 3400 /uL (1500-7000); Neutrophils Percent Auto 63.9 % (50-75); Platelet Count 211 X10^3/uL (150-400); Red Cell Distribution Width 13.8 % (11.6-14.8); White Blood Cell Count 5.2 X10^3/uL (4.5-11.0)
[2022-12-02 15:18] LABS: PTT Partial Thromboplastin Tim 32 SECONDS (26-36)
[2022-12-02 15:19] LABS: Alanine Aminotransferase 25 IU/L (<35); Albumin 4.3 g/dL (3.5-5.0); Albumin Globulin Ratio 1.7 (1.0-2.8); Alkaline Phosphatase 45 U/L (38-126); Aspartate Aminotransferase 30 IU/L (14-36); Bilirubin Total 0.2 mg/dL (0.2-1.3); Blood Urea Nitrogen 14 mg/dL (7-17); Calcium 9.5 mg/dL (8.4-10.2); Carbon Dioxide 26 mmol/L (22-32); Chloride 105 mmol/L (98-107); Creatine Kinase 183 U/L (30-135); Estimated Glomerular Filt Rate > 60 mL/min (>60); Globulin 2.6 g/dL (1.7-4.1); Glucose 97 mg/dL (80-110); HEMOLYSIS < 15 (0-50); Lipase 114 U/L (23-300); Magnesium 2.1 mg/dL (1.6-2.3); Potassium 3.3 mmol/L (3.4-5.1); Sodium 139 mmol/L (137-145); Total Protein 6.9 g/dL (6.3-8.2)
[2022-12-02 15:31] LABS: Troponin I < 0.012 ng/mL (0.01-0.034)
[2022-12-02 16:13] VITALS: BP 167/66; PULSE 65; RESP 15; TEMP 36.2; O2SAT 99
--- NOTE | 2022-12-02 16:49 | ED.URI ---
HPI - URI/Sore Throat General Chief Complaint: Shortness of Breath/Dyspnea Stated Complaint: not getting better/HX Bronchitis Time Seen by Provider: 12/02/22 14:09 Source: patient Mode of arrival: Ambulatory History of Present Illness HPI Narrative: Patient here with . Complains of persistent cough since April of 2022. Patient has been into primary care office 2 or 3 times for this. In the spring time she did travel to [place] and felt worse. When she returned she started to feel better but through the course of the summer still had off and on coughing. Denies any chest pain. Coughing is dry. No new medications. Denies any molds or unusual environmental contaminants around the home. They are in a brand new home 3 years old. has occasional cough. Patient recently had CT scan of the chest. It did reveal possible bronchitis. This was done November 11, 2022. Just last month. Patient was given Augmentin without any resolution. No breathing treatments were given. No steroids were given. Patient in no distress at this time. Exam is reassuring. She is not seen pulmonary services for this or GI services or ENT services. Patient has not had any allergy testing Related Data Home Medications Medication Instructions Recorded Confirmed omeprazole 20 mg capsule,delayed 20 mg PO BID 01/18/18 12/09/21 release Previous Rx's Medication Instructions Recorded benzonatate 100 mg capsule 100 mg PO TID PRN cough #20 caps 12/02/22 methylprednisolone 4 mg tablets in See Rx Instructions PO .COMPLEX 12/02/22 a dose pack (Medrol (Surinder)) #21 ea Allergies Allergy/AdvReac Type Severity Reaction Status Date / Time Sulfa (Sulfonamide Allergy Unknown Verified 12/09/21 07:30 Antibiotics) [SULFA (SULFONAMIDE ANTIBIOTICS)] codeine Allergy Verified 12/09/21 07:30 Review of Systems Review of Systems Narrative: GENERAL: negative chills, fatigue, malaise, fever, sweats. HEENT: negative sinus pain, ear pain, sore throat RESPIRATORY: negative dyspnea, positive cough CARDIOVASCULAR: negative chest pain, palpitations GASTROINTESTINAL: negative nausea, vomiting, abdominal pain : negative dysuria, frequency, hematuria MUSCULOSKELETAL: negative muscle or bony pain SKIN: negative rash, skin lesions NEUROLOGIC: negative weakness, numbness ROS Unobtainable: All systems reviewed & are unremarkable except as noted in HPI and below Patient History Medical History (Updated 12/02/22 @ 16:56 by Jun Paez MD) Chronic gastroesophageal reflux disease Surgical History No pertinent past surgical history Social History household members: spouse Smoking Status: Never smoker Smoking Status: Never smoker alcohol intake frequency: a few times a week Substance Use Type: does not use Exam Narrative Exam Narrative: GENERAL: in no distress, not toxic not dyspneic HEAD: Normocephalic. EYES: Pupils equal round ENT: Mucous membranes moist. Slightly boggy bilateral nasal mucosa NECK: Trachea midline. CARDIOVASCULAR: Regular rate and rhythm RESPIRATORY: Clear to auscultation. Breath sounds equal bilaterally. No wheezes, rales, or rhonchi. Speaking full sentences GASTROINTESTINAL: Abdomen soft, non-tender EXTREMITIES: No gross deformities. BACK: No flank tenderness. NEURO: AOx4. SKIN: Warm and dry PSYCH: Not anxious, is cooperative Initial Vital Signs Initial Vital Signs: Vital Signs Temperature 97.5 F L 12/02/22 13:38 Pulse Rate 79 12/02/22 13:38 Respiratory Rate 18 12/02/22 13:38 Blood Pressure 144/65 H 12/02/22 13:38 Pulse Oximetry 99 12/02/22 13:38 Oxygen Delivery Method Room Air 12/02/22 13:38 Course Orders Ordered: ED Orders 12/02/22 14:28 XR chest 1V Stat EKG-12 Lead Stat 12/02/22 14:55 Complete Blood Count AUTO DIFF Stat Comprehensive Metabolic Panel Stat Lipase Stat Magnesium Stat PTT Partial Thromboplastin Omid Stat Prothrombin Time INR Stat Troponin & CK Cardiac Panel Stat Discontinued Medications Albuterol (Albuterol Hfa Prepack) 1 box MISC SEEINSTR ONE Stop: 12/02/22 17:12 Last Admin: 12/02/22 17:16 Dose: 1 box Documented By: MR Vital Signs Vital signs: Vital Signs - 8 hr 12/02/22 13:38 12/02/22 16:13 12/02/22 17:25 Temperature 97.5 F L 97.2 F L Pulse Rate 79 65 63 Respiratory Rate 18 15 16 Blood Pressure 144/65 H 167/66 H 129/63 Pulse Oximetry 99 99 99 Oxygen Delivery Method Room Air Room Air Room Air MDM - URI/Sore Throat Medical Records Medical records narrative: [address] [address] [address] Scan Report Signed Patient: Elda Mendoza MR#: [id number] : 1945 Acct:[id number] Age/Sex: 76 / F Date of Service: 11/11/22 Loc: CT Accession Number: [id number] Procedure: CT chest w con Ordering Provider: Zacarias Mcqueen MD PROCEDURE: CT CHEST W CON INDICATIONS: CHRONIC COUGH TECHNIQUE: After the administration of intravenous contrast, 5 mm thick sections acquired from the pulmonary apices to the posterior costophrenic angles. 1 mm axial lung, 5 mm thick coronal and sagittal reformats and 7 mm axial MIP were acquired. For radiation dose reduction, the following was used: automated exposure control, adjustment of mA and/or kV according to patient size. COMPARISON: [facility], CT, CT ANGIO CHEST PE PROTOCOL, 10/03/2019, 13:32. FINDINGS: Image quality: Excellent. Lungs and pleura: No acute air space opacities. No pleural effusions or pneumothorax. Mild bronchial thickening with a few regions of mucous impaction. Stable 5-6 millimeter solid nodule in the right upper lobe (series 3, image 77). Mediastinum: Heart size is normal. No pericardial effusion. No mediastinal or hilar adenopathy by size criteria. Thoracic aorta and central pulmonary arteries are normal in size. Esophagus is normal in caliber. No hiatal hernia. Bones and chest wall: No suspicious bony lesions. No vertebral body compression fractures. No axillary or supraclavicular adenopathy by size criteria. Thyroid gland is unremarkable . Abdomen: Visualized upper abdominal solid organs appear normal. Upper abdominal bowel loops are normal in caliber. IMPRESSION: Mild bronchial thickening with regions of mucous impaction, suggestive of bronchitis. Stable pulmonary nodule in the right upper lobe compared with 2020, which is statistically benign. Dictated by: Zana Yu M.D. on 11/11/2022 at 15:46 Approved by: Zana Yu M.D. on 11/11/2022 at 15:50 Lab Data 12/02/22 14:55 12/02/22 14:55 Labs: Lab Results 12/02/22 Range/Units 14:55 WBC 5.2 (4.5-11.0) X10^3/uL RBC 3.90 L (4.0-5.2) X10^6/uL Hgb 12.8 (12.0-16.0) g/dL Hct 37.2 (36-46) % MCV 95.5 (80-100) fL MCH 32.9 (26-34) PG MCHC 34.4 (30-36) % RDW 13.8 (11.6-14.8) % Plt Count 211 (150-400) X10^3/uL Neut % (Auto) 63.9 (50-75) % Lymph % (Auto) 26.8 (25-40) % Spink % (Auto) 6.1 (3-14) % Eos % (Auto) 3.0 (2-4) % Baso % (Auto) 0.2 (0-2) % Neut # (Auto) 3400 (4486-8938) /uL Lymph # (Auto) 1400 (8929-2491) /uL Spink # (Auto) 300 (0-900) /uL Eos # (Auto) 200 (0-450) /uL Baso # (Auto) 0 (0-100) /uL PT 11.0 (10.1-12.7) SECONDS INR 1.0 (0.9-1.3) APTT 32 (26-36) SECONDS Sodium 139 (137-145) mmol/L Potassium 3.3 L (3.4-5.1) mmol/L Chloride 105 (98-107) mmol/L Carbon Dioxide 26 (22-32) mmol/L BUN 14 (7-17) mg/dL Creatinine 0.61 (0.52-1.04) mg/dL Estimated GFR > 60 (>60) mL/min BUN/Creatinine Ratio 23.0 H (6-22) Glucose 97 (80-110) mg/dL Calcium 9.5 (8.4-10.2) mg/dL Magnesium 2.1 (1.6-2.3) mg/dL Total Bilirubin 0.2 (0.2-1.3) mg/dL AST 30 (14-36) IU/L ALT 25 (<35) IU/L Alkaline Phosphatase 45 (38-126) U/L Total Creatine Kinase 183 H (30-135) U/L Troponin I < 0.012 (0.01-0.034) ng/mL Total Protein 6.9 (6.3-8.2) g/dL Albumin 4.3 (3.5-5.0) g/dL Globulin 2.6 (1.7-4.1) g/dL Albumin/Globulin Ratio 1.7 (1.0-2.8) Lipase 114 (23-300) U/L Imaging Data Chest x-ray: Radiologist's Impression: [address] [address] XRay Report Signed Patient: Elda Mendoza MR#: [id number] : 1945 Acct:[id number] Age/Sex: 77 / F Date of Service: 12/02/22 Loc: ED Accession Number: [id number] Procedure: XR chest 1V Ordering Provider: Bree Henao P.A-C PROCEDURE: XR CHEST 1V INDICATIONS: chest pain TECHNIQUE: One view of the chest was acquired. COMPARISON: [facility], , XR CHEST 2V, 11/02/2022, 14:36. FINDINGS: Surgical changes and devices: None. Lungs and pleura: Lungs are clear. No pleural effusions or pneumothorax. Mediastinum: Mediastinal contours appear normal. Heart size is normal. Bones and chest wall: No suspicious bony lesions. Overlying soft tissues appear unremarkable. IMPRESSION: No acute pulmonary process. Dictated by: Patricia Cain M.D. on 12/02/2022 at 15:19 Approved by: Patricia Cain M.D. on 12/02/2022 at 15:20 [facility] Narrative Medical decision making narrative: Patient here with . Complains of persistent cough since April of 2022. Patient has been into primary care office 2 or 3 times for this. In the spring time she did travel to [place] and felt worse. When she returned she started to feel better but through the course of the summer still had off and on coughing. Denies any chest pain. Coughing is dry. No new medications. Denies any molds or unusual environmental contaminants around the home. They are in a brand new home 3 years old. has occasional cough. Patient recently had CT scan of the chest. It did reveal possible bronchitis. This was done November 11, 2022. Just last month. Patient was given Augmentin without any resolution. No breathing treatments were given. No steroids were given. Patient in no distress at this time. Exam is reassuring. She is not seen pulmonary services for this or GI services or ENT services. Patient has not had any allergy testing After history and exam CBC CMP troponin EKG chest x-ray [facility] CC: Cough Complicating co-morbidities: None Data collected from: Patient and Medical records reviewed: CT report from November 11, 2022 Differential considered: Includes but not limited to acid reflux, postnasal drip cough, chronic bronchitis, allergies Exam documented above, pertinent findings include: Clear lung sounds Lab Test results independently reviewed as above. Pertinent findings: WBC 5.2 hemoglobin 12.8 INR 1.0 sodium 139 potassium 3.3 GFR greater than 60 troponin less than 0.012 Independently reviewed EKG normal sinus rhythm rate [address] elevation depression Imaging studies independently reviewed: Chest x-ray no acute finding Consultations: 5:10 p.m.. Spoke with primary care provider, Dr. Mcqueen, he will see patient in the office next week and get referrals for endoscopy bronchoscopy allergy testing and possible otolaryngology. He would like patient to have prescription for inhaler as well as Medrol Dosepak and Tessalon Perles. Treatments: Albuterol inhaler Re-evaluations: Reviewed results and exam with patient. Patient states coughing isn't necessarily worse at night or in the morning. It is predominantly during the daytime. She does agree for follow up with primary care again for referrals to Pulmonary Services possibly GI/general surgery for endoscopy, possibly allergy testing possibly Otolaryngology as well. Patient is on omeprazole. However has been on it for 2 years. Nontoxic at discharge. Return precautions reviewed with her. She desires discharge home Discussion: Appropriate for discharge home. Patient has had a chronic cough for over 7 months. She does agree to follow up with primary care for referral to Pulmonary Services general surgery or GI or communications lead or otolaryngology. Nontoxic at discharge. Inhaler sent home with patient. Prescriptions provided. Return precautions reviewed. She desires discharge home Diagnosis: Chronic cough/bronchitis Discharge Plan Departure Patient Disposition: Home Clinical Impression: Chronic cough Instructions: DI for Cough -- Adult Activity Restrictions/Additional Instructions: Please follow up with family doctor. You may need referral for Pulmonary Services for bronchoscopy or gastroenterology services or endoscopy of the stomach or possibly communications lead/bearingizer. The services may help define reason for your ongoing cough. Use provided inhaler 2 puffs every 4 hours as needed for cough. Prescription for steroid pack to be started tomorrow. It has been sent to your pharmacy. Cough medication has been sent to your pharmacy as well. Return if worse if any questions or concerns Prescriptions: New benzonatate 100 mg capsule 100 mg PO TID PRN (Reason: cough) Qty: 20 0RF methylprednisolone [Medrol (Surinder)] 4 mg tablets,dose pack See Rx Instructions .ROUTE .COMPLEX Qty: 21 0RF Rx Instructions: orally per package directions No Action omeprazole 20 mg capsule,delayed release(DR/EC) 20 mg PO BID Referrals: Zacarias Mcqueen MD [Primary Care Provider] - Stand Alone Forms: Patient Portal/API
[2022-12-02] MEDS: ALBUTEROL HFA PREPACK 1 BOX MISC (17:16)
[2022-12-02 17:25] VITALS: BP 129/63; PULSE 63; RESP 16; O2SAT 99
== END 2022-12-02 17:26 | disposition home or self-care (01) ==
PROVIDERS: Physician Assistant; Emergency Provider Emergency Medicine; PCP Family Medicine
DX: R05.3 Chronic cough (principal); R07.9 Chest pain, unspecified
CPT/HCPCS: 36415; 71045; 80053; 82550; 83690; 83735; 84484; 85025; 85610; 85730; 93005; 99284

== ENCOUNTER → 2023-02-19 14:44 | Outpatient (CLI) | payer MEDICARE, OTHER, SELFPAY ==
--- NOTE | 2023-02-19 14:45 | DI.MG.S_ITS ---
BILATERAL DIGITAL SCREENING MAMMOGRAM 3D/2D WITH CAD: 02/19/2023 CLINICAL: Routine screening. Family history of breast cancer. Comparison is made to exams dated: 02/18/2022 mammogram, 02/07/2021 mammogram, and 02/07/2020 mammogram - [facility]. Both breasts are heterogeneously dense, which may obscure small masses (category c / 51-75% glandular tissue). Current study was also evaluated with a Computer Aided Detection (CAD) system. No significant masses, calcifications, or other findings are seen in either breast. There has been no significant interval change. IMPRESSION: NEGATIVE There is no mammographic evidence of malignancy. A 1 year screening mammogram is recommended. Based on the Tyrer Cuzick model (a risk assessment model) the patient's lifetime risk is 4.9% and her 10 year risk is 0.0%. According to the ACR, ACS, and NCCN guidelines, an annual breast MRI exam along with mammogram is recommended if the patient's lifetime risk is 20% or greater. This exam was interpreted at Station ID: [id number]. NOTE: For mammograms, a report in lay terms will be sent to the patient. Approximately 15% of breast malignancies will not be visualized mammographically. In the management of a palpable breast mass, a negative mammogram must not discourage biopsy of a clinically suspicious lesion. Electronically Signed By: Duarte roberson/ronnie:02/19/2023 15:45:39 letter sent: Normal Exam ACR BI-RADS Category 1: Negative [id number]
== END ==
PROVIDERS: PCP Family Medicine; Referring Provider Family Medicine; Visit Provider Family Medicine
DX: Z12.31 Encounter for screening mammogram for malignant neoplasm of breast (principal); Z80.3 Family history of malignant neoplasm of breast
CPT/HCPCS: 77063; 77067

== ENCOUNTER → 2023-03-04 09:26 | Outpatient (CLI) | payer MEDICARE, OTHER, SELFPAY | LOC: RESP 09:27 | PROVIDERS: PCP Family Medicine; Referring Provider Internal Medicine Critical Care Medicine; Visit Provider Internal Medicine Critical Care Medicine | DX: R06.02 Shortness of breath (principal); J98.8 Other specified respiratory disorders | CPT/HCPCS: 94060; 94726; 94729 ==

== ENCOUNTER → 2023-03-30 08:45 | Outpatient (CLI) | payer MEDICARE, OTHER, SELFPAY ==
--- NOTE | 2023-03-30 | DI.MRI.S_ITS ---
PROCEDURE: MR WRIST RT WO CON INDICATIONS: Localized swelling, mass and lump, right upper limb TECHNIQUE: Noncontrast coronal proton density fast spin echo and T2 fast spin echo with fat saturation; coronal 3-D gradient echo, axial T1 spin echo and T2 fast spin echo with fat saturation, sagittal T1 spin echo through the wrist. COMPARISON: None. FINDINGS: Image quality: Excellent. Bones and cartilage: The carpal bones are normally aligned. Osteoarthritic changes are noted throughout wrist joints with joint space narrowing, subchondral sclerosis more notably at radiocarpal joint. Mild edema involving proximal scaphoid and lunate are seen without discrete fracture line. No evidence of avascular necrosis. Carpal ligaments: The scapholunate and lunotriquetral ligaments are grossly intact. In the absence of intra-articular contrast, the extrinsic carpal ligaments are not well identified. On sagittal images, the pisohamate ligament appears intact. Triangular fibrocartilage complex: Signal abnormality within medial periphery of triangular fibrocartilage near its ulnar insertion is seen. The extensor carpi ulnaris tendon is mildly thickened at the level of ulnar styloid. Tendons and soft tissues: The carpal tunnel structures appear normal, including the median nerve. The ulnar nerve appears normal within Guyon's canal. All six extensor tendon compartments demonstrate normal morphology, without pathologic tendon sheath fluid. There is a ganglion cyst over volar aspect of proximal triquetrum/ulnar styloid is seen measures up to 0.9 x 0.5 x 0.8 cm in size. IMPRESSION: 1. Suggestion of bony contusion involving proximal scaphoid and lunate without definite fracture line. Osteoarthritic changes throughout right wrist joints are seen most notably involving radiocarpal joint. No definite fracture or dislocation. No evidence of avascular necrosis. 2. The scapholunate and lunotriquetral ligaments are intact. 3. Finding is concerning for triangular fibrocartilage tear near its ulnar insertion. 4. Tendinosis involving extensor carpi ulnaris tendon at the level of ulnar styloid. 5. Ganglion cyst over volar aspect of ulnar styloid/triquetrum as above. Dictated by: Ez Humphries M.D. on 03/30/2023 at 11:30 Approved by: Ez Humphries M.D. on 03/30/2023 at 11:34
== END ==
LOC: MRI 08:46
PROVIDERS: PCP Family Medicine; Referring Provider Family Medicine; Visit Provider Family Medicine
DX: M67.431 Ganglion, right wrist (principal); R22.31 Localized swelling, mass and lump, right upper limb
CPT/HCPCS: 73221

== ENCOUNTER → 2023-04-15 14:25 | Outpatient (CLI) | payer MEDICARE, OTHER, SELFPAY ==
--- NOTE | 2023-04-15 14:30 | DI.RAD.S_ITS ---
PROCEDURE: XR ANKLE LT MIN 3V INDICATIONS: PAIN IN LEFT ANKLE TECHNIQUE: 3 views of the ankle were acquired. COMPARISON: None. FINDINGS: Bones: No fractures or dislocations. Ankle mortise is normally aligned. No suspicious bony lesions. Soft tissues: No tibiotalar joint effusion. Achilles tendon appears normal. IMPRESSION: No acute bony abnormality or significant effusion. Approved by: Brandyn Coronado M.D. on 04/15/2023 at 19:19
== END ==
PROVIDERS: PCP Family Medicine; Referring Provider Family Medicine; Visit Provider Family Medicine
DX: M25.572 Pain in left ankle and joints of left foot (principal); G89.29 Other chronic pain
CPT/HCPCS: 73610

== ENCOUNTER → 2023-04-23 15:05 | Outpatient (CLI) | payer MEDICARE, OTHER, SELFPAY ==
--- NOTE | 2023-04-24 02:34 | DI.NM.S_ITS ---
DATE OF SERVICE: 04/23/2023 PROCEDURE: Exercise treadmill stress test without imaging. ORDERING PROVIDER: Shahida Garsia MD INDICATIONS: The patient is a 77-year-old female with fatigue and exertional dyspnea. FINDINGS: 1. The patient was able to exercise for 8 minutes, 20 seconds on a standard Joselo protocol suggesting excellent exercise capacity with an of -58%, achieving 8.3 METS. 2. She had a normal heart rate and blood pressure response to exercise, achieving a maximum heart rate of 158 BPM (110% of her predicted maximum). 3. She had no chest discomfort or other anginal symptoms. 4. Her resting ECG shows sinus rhythm with occasional isolated PVCs and subtle ST depression in the inferolateral leads. With stress, this ST depression becomes accentuated up to 1.5 to 2.0 mm of flat to upsloping ST depression in the inferolateral leads but resolves back to baseline within 1 minute of recovery and thus is nonspecific for ischemia. She had occasional PVCs, rarely in couplets, at peak exercise but no other complex ventricular ectopy. IMPRESSION: 1. Probable normal exercise treadmill stress test for ischemia. 2. Mild flat to upsloping ST depression at peak exercise that resolves promptly in recovery. Because of baseline ST abnormality and the upsloping nature of the ST depression, as well as the prompt resolution in recovery, this is nonspecific for ischemia but clinical correlation is recommended. 3. Excellent exercise capacity without angina or ECG evidence of ischemia. She had occasional isolated PVCs at rest and with stress with rare ventricular couplets at peak exercise but no other complex arrhythmias. Elda Mendoza - RIKA/rebeka/ec doc#: [id number]/job#: [id number] dd: 04/23/2023 16:45:00 dt: 04/24/2023 02:15:00 DICTATING MD/COPIES TO: Zacarias Villagomez; Shahida Garsia MD COPIES MNE: VICENTE
== END ==
PROVIDERS: PCP Family Medicine; Referring Provider Internal Medicine Cardiovascular Disease; Visit Provider Internal Medicine Cardiovascular Disease
DX: R06.02 Shortness of breath (principal); R53.83 Other fatigue; R06.09 Other forms of dyspnea
CPT/HCPCS: 93017

== ENCOUNTER → 2023-05-20 06:44 | Outpatient (CLI) | payer MEDICARE, OTHER, SELFPAY ==
--- NOTE | 2023-05-20 06:45 | DI.ECHO.S_ITS ---
[facility] +---------+ : : [address] : : : : [id number] : : : : Phone: [phone]+ Echocardiogram Report + + :Name: KEVIN TAMAYO Study Date: 05/20/2023 Height: 66.5 in: :[facility] ReadingLocation: Weight: 114 lb : : Gender: Female BSA: 1.6 m2 : :: 1945 Age: 77 yrs BP: 143/62 mmHg: :Reason For Study: SHORTNESS OF BREATH : :Ordering Physician: DEJA, : :SOURAV Performed By: Breonna Moulton : :Referring: SOURAV SHORT : + + Interpretation Summary Short run of atrial versus sinus tachycardia at beginning of test up to 125bpm. Otherwise normal sinus rhythm. No A-fib or ventricular tachycardia. The left ventricle is normal in size and wall thickness. The left ventricular ejection fraction is normal. The ejection fraction is estimated to be 55-60%. The right ventricle is normal in size and function. There is borderline mitral valve prolapse. There is prolapse of the anterior mitral valve leaflet. There is trace mitral regurgitation. There is mild tricuspid regurgitation. The right ventricular systolic pressure is estimated to be at least 31 mmHg based on an estimated right atrial pressure of 8 mm Hg. There is mild luminal irregularity and echogenicity in the abdominal aorta, suggestive of aortic atherosclerotic disease. Mild atherosclerotic plaque(s) in the aortic arch. Procedure: A two-dimensional transthoracic echocardiogram with color flow and Doppler was performed. The study quality was technically adequate. There is no prior echocardiogram noted for this patient. The patient was in sinus rhythm with heart rates between 62-71 bpm during the exam. Left Ventricle: The left ventricle is normal in size and wall thickness. There is no thrombus. The ejection fraction is estimated to be 55-60%. The left ventricular ejection fraction is normal. There are no focal wall motion abnormalities. MV E/A: 1.1 Med Peak E' Aashish: 9.1 cm/sec E/E' med: 10.7. Right Ventricle: The right ventricle is normal in size and function. Atria: The left atrial size is normal. Right atrial size is normal. There is no Doppler evidence for an interatrial shunt. Mitral Valve: The mitral valve leaflets are mildly calcified. There is borderline mitral valve prolapse. There is prolapse of the anterior mitral valve leaflet. There is trace mitral regurgitation. Aortic Valve: The aortic valve is trileaflet. There is no aortic valve stenosis. There is trace aortic regurgitation. Tricuspid Valve: The tricuspid valve is normal in structure and function. There is mild tricuspid regurgitation. The right ventricular systolic pressure is estimated to be at least 31 mmHg based on an estimated right atrial pressure of 8 mm Hg. Pulmonic Valve: The pulmonic valve leaflets are thin and pliable; valve motion is normal. There is no pulmonic valvular regurgitation. Great Vessels: The aortic root is normal size. The ascending aorta could not be visualized. There is mild luminal irregularity and echogenicity in the abdominal aorta, suggestive of aortic atherosclerotic disease. Mild atherosclerotic plaque(s) in the aortic arch. The IVC is dilated (diameter is greater than 2.1 cm) yet it collapses greater than 50% with a sniff. This suggests a right atrial pressure of 8 mm Hg. Pericardium/ Pleura There is no pericardial effusion. There is no pleural effusion. MMode/2D Measurements & Calculations LVIDd: 3.6 cm LVOT diam: 2.2 cm LVIDs: 2.7 cm Ao root diam: 2.7 cm FS: 25.0 % Ao Arch Diam (Prox Trans): 2.1 cm IVSd: 0.77 cm LVPWd: 0.63 cm LV damon. diameter/BSA (cm/m^2): 2.3 LV sys. diameter/BSA (cm/m^2): 1.7 LA A2 area: 17.2 cm2 RA long axis: 4.1 cm LA A4 area: 11.9 cm2 RA area: 8.8 cm2 LA length (vol): 4.0 cm RA vol: 16.4 ml LA vol: 43.6 ml RA : 10.3 ml/m2 LA vol index: 27.5 ml/m2 IVC diam: 2.1 cm RVD1 (basal): 2.4 cm RVD2 (mid): 1.8 cm TAPSE: 2.1 cm Doppler Measurements & Calculations Ao V2 max: 106.0 cm/sec LVOT Max Aashish: 72.2 cm/sec Ao V2 mean: 78.3 cm/sec LV V1 max P.1 mmHg Ao max P.5 mmHg LV V1 VTI: 18.6 cm Ao mean P.6 mmHg DREA(I,D): 3.1 cm2 Ao V2 VTI: 23.8 cm DREA(V,D): 2.7 cm2 sev ratio: 0.78 DREA indexed to BSA (cm^2/m^2): 1.9 MV E max aashish: 97.7 cm/sec TR max aashish: 238.3 cm/sec MV A max aashish: 92.0 cm/sec TR max P.7 mmHg MV E/A: 1.1 PA V2 max: 111.1 cm/sec Med Peak E' Aashish: 9.1 cm/sec PA V2 mean: 83.1 cm/sec E/E' med: 10.7 PA mean P.0 mmHg Lat Peak E' Aashish: 9.3 cm/sec PA pr(Accel): 29.3 mmHg E/E' lat: 10.5 E/e' average: 10.6 MV dec time: 0.27 sec SV(LVOT): 73.6 ml Reading Physician:10:36 AM
== END ==
PROVIDERS: PCP Family Medicine; Referring Provider Internal Medicine Cardiovascular Disease; Visit Provider Internal Medicine Cardiovascular Disease
DX: I34.1 Nonrheumatic mitral (valve) prolapse (principal); R06.02 Shortness of breath; I70.0 Atherosclerosis of aorta
CPT/HCPCS: 93306

== ENCOUNTER → 2024-03-02 12:48 | Outpatient (CLI) | payer MEDICARE, OTHER, SELFPAY ==
--- NOTE | 2024-03-02 12:52 | DI.MG.S_ITS ---
BILATERAL DIGITAL SCREENING MAMMOGRAM 3D/2D WITH CAD: 03/02/2024 CLINICAL: Routine screening. Family history of breast cancer. Comparison is made to exams dated: 02/19/2023 mammogram, 02/18/2022 mammogram, and 02/07/2021 mammogram - [facility]. The breasts are heterogeneously dense, which may obscure small masses (category c / 51-75% glandular tissue). Current study was also evaluated with a Computer Aided Detection (CAD) system. No significant masses, calcifications, or other findings are seen in either breast. There has been no significant interval change. IMPRESSION: NEGATIVE There is no mammographic evidence of malignancy. A 1 year screening mammogram is recommended. Based on the Tyrer Cuzick model (a risk assessment model) the patient's lifetime risk is 4.4% and her 10 year risk is 0.0%. According to the ACR, ACS, and NCCN guidelines, an annual breast MRI exam along with mammogram is recommended if the patient's lifetime risk is 20% or greater. This exam was interpreted at Station ID: [id number]. NOTE: For mammograms, a report in lay terms will be sent to the patient. Approximately 15% of breast malignancies will not be visualized mammographically. In the management of a palpable breast mass, a negative mammogram must not discourage biopsy of a clinically suspicious lesion. Electronically Signed By: Amos lewis/ronnie:03/03/2024 06:44:07 letter sent: Normal Exam ACR BI-RADS Category 1: Negative
== END ==
PROVIDERS: PCP Family Medicine; Referring Provider Family Medicine; Visit Provider Family Medicine
DX: Z12.31 Encounter for screening mammogram for malignant neoplasm of breast (principal); Z80.3 Family history of malignant neoplasm of breast; R92.333 Mammographic heterogeneous density, bilateral breasts
CPT/HCPCS: 77063; 77067

== ENCOUNTER → 2024-03-08 08:44 | Outpatient (CLI) | payer MEDICARE, OTHER, SELFPAY ==
--- NOTE | 2024-03-08 08:47 | DI.RAD.S_ITS ---
PROCEDURE: XR FOOT RT MIN 3V INDICATIONS: Pain in right foot TECHNIQUE: 3 views of the foot were acquired. COMPARISON: None. FINDINGS: Bones: No fractures or dislocations. No suspicious bony lesions. Soft tissues: No tibiotalar joint effusion. Achilles tendon appears normal. IMPRESSION: No acute bony abnormality. Dictated by: Zana Yu M.D. on 03/08/2024 at 11:54 Approved by: Zana Yu M.D. on 03/08/2024 at 11:55
--- NOTE | 2024-03-08 09:13 | DI.RAD.S_ITS ---
PROCEDURE: XR FOOT LT MIN 3V INDICATIONS: pain in both feet TECHNIQUE: 3 views of the foot were acquired. COMPARISON: [facility], CR, XR FOOT RT MIN 3V, 03/08/2024, 8:46. FINDINGS: Bones: There is an age-indeterminate deformity of the 5th proximal phalanx. 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 Soft tissues: No suspicious calcifications. IMPRESSION: No acute displaced fracture or dislocation. 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 Age-indeterminate deformity of the 5th proximal phalanx, correlate location of symptoms. If there is high concern for further derangement, consider MRI evaluation. Dictated by: Duarte Main M.D. on 03/08/2024 at 15:21 Approved by: Duarte Main M.D. on 03/08/2024 at 15:22
== END ==
PROVIDERS: PCP Family Medicine; Referring Provider Family Medicine; Visit Provider Family Medicine
DX: M19.072 Primary osteoarthritis, left ankle and foot (principal); M20.5X2 Other deformities of toe(s) (acquired), left foot; M79.672 Pain in left foot; M79.671 Pain in right foot
CPT/HCPCS: 73630

== ENCOUNTER → 2024-03-16 08:46 | Outpatient (CLI) | payer MEDICARE, OTHER, SELFPAY ==
--- NOTE | 2024-03-16 | DI.US.S_ITS ---
PROCEDURE: US CAROTID DOPPLER BI INDICATIONS: bilateral carotid bruits TECHNIQUE: Color and pulse Doppler interrogation was performed of both carotid systems, with image documentation and velocity measurements. COMPARISON: None. FINDINGS: Stenosis calculations are based on SRU (Society of Radiologists in Ultrasound) criteria. Right side: Brachial blood pressure: 110/52 mm Hg. Common carotid artery peak systolic velocity: 127 cm/sec. Internal carotid artery peak systolic velocity: 130 cm/sec. Internal carotid artery end diastolic velocity: 31 cm/sec. External carotid artery peak systolic velocity: 136 cm/sec. ICA/CCA peak systolic ratio: 1.0 . Aguero scale imaging description: Mild atherosclerotic plaque Percent internal carotid artery stenosis: 50-69%. Vertebral artery: Flow direction is antegrade. Left side: Brachial blood pressure: 105/54 mm Hg. Common carotid artery peak systolic velocity: 96 cm/sec. Internal carotid artery peak systolic velocity: 95 cm/sec. Internal carotid artery end diastolic velocity: 23 cm/sec. External carotid artery peak systolic velocity: 101 cm/sec. ICA/CCA peak systolic ratio: 1.0 . Aguero scale imaging description: Minimal atherosclerotic plaque. Percent internal carotid artery stenosis: Less than 50%. Vertebral artery: Flow direction is antegrade. IMPRESSION: 1. In the right carotid artery, there is 50-69 % stenosis based on peak systolic velocity criteria although stenosis may be overestimated due to high inflow velocity from the common carotid artery. 2. In the left carotid artery, there is less than 50% stenosis based on peak systolic velocity criteria. 3. Antegrade vertebral arteries. Approved by: Philip Trejo M.D. on 03/16/2024 at 17:52
== END ==
PROVIDERS: PCP Family Medicine; Referring Provider Family Medicine; Visit Provider Family Medicine
DX: I65.23 Occlusion and stenosis of bilateral carotid arteries (principal); R09.89 Other specified symptoms and signs involving the circulatory and respiratory systems
CPT/HCPCS: 93880

== ENCOUNTER → 2024-03-30 14:45 | Outpatient (CLI) | payer MEDICARE, OTHER, SELFPAY ==
--- NOTE | 2024-03-30 14:46 | DI.MRI.S_ITS ---
PROCEDURE: MR ANGIO NECK W CON INDICATIONS: bilateral caarotid artery stenosis.. TECHNIQUE: Axial and sagittal TruFISP through the neck. Coronal dynamic MRA after the administration of contrast in the arterial and venous phases, with rotating 3-dimensional maximum intensity projection (MIP) reformats constructed from subtraction images. COMPARISON: None. FINDINGS: Image quality: Excellent. Carotid system: Great vessels demonstrate a conventional anatomy as they arise from the aortic arch. The origins of the common carotid arteries appear normal. The calibers and courses of the common carotid arteries are likewise normal. The carotid bifurcations appear normal bilaterally. The internal carotid arteries are widely patent up to the [place]. Posterior circulation: The origins of the vertebral arteries are unremarkable. Left vertebral artery arises directly from the aorta. The more superior portions of the vertebral arteries demonstrate normal course and caliber. Vertebral arteries join to form a normal appearing basilar artery. Miscellaneous: Subclavian arteries are patent throughout. Pre-contrast images through the neck demonstrate no soft tissue abnormalities. IMPRESSION: The arteries of the neck appear patent and normal in caliber. No significant stenosis is identified. Any quantitative measurements of stenosis were performed using NASCET criteria. Dictated by: Jacobo Soto M.D. on 03/30/2024 at 16:20 Approved by: Jacobo oSto M.D. on 03/30/2024 at 16:23
== END ==
LOC: MRI 14:45
PROVIDERS: PCP Family Medicine; Referring Provider Family Medicine; Visit Provider Family Medicine
DX: I65.23 Occlusion and stenosis of bilateral carotid arteries (principal); R09.89 Other specified symptoms and signs involving the circulatory and respiratory systems
CPT/HCPCS: 70549; A9579

== ENCOUNTER 2024-03-31 08:07 | Emergency (ER) | payer MEDICARE, OTHER, SELFPAY ==
[2024-03-31] VITALS (13 sets, daily range): BP systolic 112–142; BP diastolic 52–63; PULSE 57–71; RESP 14–20; TEMP 37; O2SAT 98–100; BMI 18.0
--- NOTE | 2024-03-31 10:30 | ED.NEUROSD ---
HPI - Neuro Symptoms/Deficit General Chief Complaint: Neuro Symptoms/Deficit Stated Complaint: hearing loss after MRI t-1 Time Seen by Provider: 03/31/24 10:23 Source: patient, RN notes reviewed and old records reviewed Mode of arrival: Ambulatory Limitations: no limitations History of Present Illness HPI Narrative: 78-year-old female with a history of GERD, dyslipidemia and inherited hearing loss. Patient states had hearing aids in her 30s has had some progressive hearing loss over time but last check was 5 years ago. She had an MRI yesterday as an outpatient. Had taken out her hearing aids and after the MRI left the building and then place him back while in the car with her and realized after brief period of time they were not really working. Patient states she has replace the batteries twice and adjusted the volume without any improvement. She did hear the time today for each 1 but states it was very faint. She feels like her hearing significantly decreased from her baseline with the hearing aids out after the MR a yesterday. Patient states no pain, no swelling no other symptoms she felt little bit dizzy and slightly nauseated yesterday but has not had any other symptoms. She states that has not been persistent. Denies any numbness tingling or weakness, no headaches, no chest pain or shortness of breath. No difficulty with speech or movement. She follows with [facility] in [place]. States home medications include omeprazole and statin. Has not allergy to sulfa. No tobacco, occasional alcohol, no recreational drugs. Dr. Mcqueen is her primary care physician. She attempted to follow up with him today but he was out of the office for the next 2 weeks. On Anticoagulants: No (81mg aspirin) Related Data Home Medications Medication Instructions Recorded Confirmed omeprazole 20 mg capsule,delayed 20 mg PO BID 01/18/18 01/21/23 release fluticasone propionate 220 2 puff inhalation BID 01/21/23 01/21/23 mcg/actuation HFA aerosol inhaler (Flovent HFA) Allergies Allergy/AdvReac Type Severity Reaction Status Date / Time Sulfa (Sulfonamide Allergy Unknown Verified 01/21/23 14:07 Antibiotics) [SULFA (SULFONAMIDE ANTIBIOTICS)] codeine Allergy Verified 01/21/23 14:07 Review of Systems Review of Systems ROS Unobtainable: All systems reviewed & are unremarkable except as noted in HPI and below Hematologic/Lymphatic On Anticoagulants: No (81mg aspirin) Patient History Medical History (Updated 03/31/24 @ 12:05 by Karlie Sher DO) Chronic gastroesophageal reflux disease Surgical History No pertinent past surgical history Social History household members: spouse Smoking Status: Never smoker Smoking Status: Never smoker alcohol intake frequency: a few times a week Exam Narrative Exam Narrative: GEN: well nourished, well appearing female, alert and oriented x 3, patient appears to be in no acute distress. HEENT: Atraumatic, pupils are equal round reactive to light, extraocular movements are intact, nares are clear, TMs are clear bilaterally, scant amount of fluid at the edge, light reflexes intact there was no bulge of the TM there was no cerumen bilaterally, there is no conjunctival pallor. Throat is clear without any exudates, erythema, tonsillar enlargement or uvular deviation, no facial droop. On Carrera test patient has no conduction or hearing bilaterally. On Rinne test patient appreciates a little bit more on the left with air conduction than the right but can hear the sound bilaterally. With bone conduction patient does not perceive any sound. HEART: Regular rate and rhythm without murmur, clicks, rubs. No carotid bruits, pulses are equal in upper and lower extremities LUNGS:Lungs clear to auscultation, no wheezes, rales, crackles, chest moves symmetrically ABD:bowel sounds normal, soft, non-tender, no guarding, rebound, rigidity, no masses noted, no hepatosplenomegaly MSCL: Non-tender, no muscle atrophy, muscles strength 5/5 upper and lower extremities, full range of motion, normal gait NEURO:CN 2-12 intact, sensation normal Initial Vital Signs Initial Vital Signs: Vital Signs Temperature 98.6 F 03/31/24 08:24 Pulse Rate 71 03/31/24 08:24 Respiratory Rate 20 03/31/24 08:24 Blood Pressure 142/63 H 03/31/24 08:24 Pulse Oximetry 100 03/31/24 08:24 Oxygen Delivery Method Room Air 03/31/24 08:24 Course Orders Ordered: ED Orders 03/31/24 10:46 CT head/brain wo con Stat 03/31/24 11:10 BMP [Basic Metabolic Panel] Stat CBC Auto Diff [Complete Blood Count AUTO DIFF] Stat Vital Signs Vital signs: Vital Signs - 8 hr 03/31/24 10:30 03/31/24 10:30 03/31/24 11:00 Pulse Rate 70 Respiratory Rate Blood Pressure 115/56 L 121/58 L Pulse Oximetry 99 03/31/24 11:00 03/31/24 11:30 03/31/24 11:30 Pulse Rate 60 57 L Respiratory Rate Blood Pressure 112/56 L Pulse Oximetry 100 99 03/31/24 12:00 03/31/24 12:00 03/31/24 12:30 Pulse Rate 65 61 Respiratory Rate Blood Pressure 129/58 L Pulse Oximetry 100 98 03/31/24 12:30 03/31/24 12:36 03/31/24 13:00 Pulse Rate 63 65 Respiratory Rate 14 Blood Pressure 131/63 131/63 Pulse Oximetry 100 03/31/24 13:00 Pulse Rate Respiratory Rate Blood Pressure 136/62 Pulse Oximetry MDM - Neuro Symptoms/Deficit Lab Data 03/31/24 11:10 03/31/24 11:10 Labs: Lab Results 03/31/24 Range/Units 11:10 WBC 4.2 L (4.5-11.0) X10^3/uL RBC 3.74 L (4.0-5.2) X10^6/uL Hgb 12.2 (12.0-16.0) g/dL Hct 35.9 L (36-46) % MCV 96.1 (80-100) fL MCH 32.6 (26-34) PG MCHC 33.9 (30-36) % RDW 13.5 (11.6-14.8) % Plt Count 208 (150-400) X10^3/uL Neut % (Auto) 58.3 (50-75) % Lymph % (Auto) 29.9 (25-40) % [place] % (Auto) 7.2 (3-14) % Eos % (Auto) 3.7 (2-4) % Baso % (Auto) 0.9 (0-2) % Neut # (Auto) 2400 (8210-1724) /uL Lymph # (Auto) 1200 (3608-3730) /uL [place] # (Auto) 300 (0-900) /uL Eos # (Auto) 200 (0-450) /uL Baso # (Auto) 0 (0-100) /uL Sodium 138 (137-145) mmol/L Potassium 3.7 (3.4-5.1) mmol/L Chloride 108 H (98-107) mmol/L Carbon Dioxide 25 (22-32) mmol/L BUN 10 (7-17) mg/dL Creatinine 0.62 (0.52-1.04) mg/dL Estimated GFR > 60 (>60) mL/min BUN/Creatinine Ratio 16.1 (6-22) Glucose 97 (80-110) mg/dL Calcium 9.0 (8.4-10.2) mg/dL MDM Narrative Medical decision making narrative: 78-year-old female with chronic hearing loss with hearing aids since her mid 30s notes she had MRA yesterday and states afterwards she put her hearing aids back in and had persistent decrease in hearing since. She has replace the batteries twice adjusted the volume trouble she did with her hearing aids and feels that it has not the hearing aids but likely her actual hearing which is decreased from her normal baseline. She states today seems a little bit better than yesterday. She does not have any other pain or other changes. On exam structurally her ears are normal there was no cerumen impaction or infection noted. On channing and Rinne tests patient has equal hearing right slightly greater than left with air conduction but does not have any hearing bilaterally with bone conduction. Quick review of the literature notes that there are some rare cases of gadolinium enhanced MRI and sudden hearing particularly in individuals with baseline hearing issues. Did obtain labs including CBC and electrolytes to evaluate for hyponatremia and head CT. Head CT shows no acute change Labs white count of 4.2 hemoglobin of 12.2 platelets are 208, sodium is 138 chloride 108 otherwise electrolytes are appropriate calcium is 9. Spoke with ENT, Dr. Hargrove who recommends follow-up in the office for evaluation hearing test. Did ask for Carrera and Rinne testing to evaluate for sensorineural hearing loss and would treat with high-dose steroids. If patient does not appear to have sensorineural hearing would have patient follow up in the next week for evaluation and hearing test. Discharge Plan Departure Patient Disposition: Home Clinical Impression: Hearing decreased Instructions: DI for Hearing Loss Activity Restrictions/Additional Instructions: Please follow-up for re-evaluation of your hearing, contact for ENT is included below. Please call today to set up a follow up in the next week. I spoke with Dr. Hargrove who would like for you to be seen. There are some rare cases of sudden hearing loss after receiving gadolinium contrast with MRIs, unclear if this is the source of your hearing changes but I would recommend follow up with audiology and ENT. Continue your home medications as prescribed. Please return for severe headaches, new ear pain, new neurologic changes, difficulty with speech, movement, new numbness, tingling or weakness, vertigo or dizziness, persistent vomiting, lightheadedness or passing out or other new or concerning changes. Prescriptions: No Action omeprazole 20 mg capsule,delayed release(DR/EC) 20 mg PO BID fluticasone propionate [Flovent HFA] 220 mcg/actuation HFA aerosol inhaler 2 puff inhalation BID Referrals: Henrique Stroud MD [Physician] - Kael Todd MD [Physician] - Joseph Hargrove MD [Physician] - Zacarias Mcqueen MD [Primary Care Provider] - Stand Alone Forms: Patient Portal/API/Survey
--- NOTE | 2024-03-31 10:46 | DI.CT.S_ITS ---
PROCEDURE: CT HEAD/BRAIN WO CON INDICATIONS: increased hearing loss after MRI yesterday TECHNIQUE: Noncontrast 4.5 mm thick angled axial sections acquired from the foramen magnum to the vertex, with coronal and sagittal reformats. For radiation dose reduction, the following was used: automated exposure control, adjustment of mA and/or kV according to patient size. COMPARISON: [facility], MR, MR ANGIO NECK W CON, 03/30/2024, 15:06. FINDINGS: Image quality: Diagnostic. CSF spaces: Basal cisterns are patent. No extra-axial fluid collections. The ventricles are symmetric in size and shape. Brain: No intracranial bleeds or masses. There is cerebral volume loss for age, with resultant ventricular and sulcal prominence. There are periventricular and deep white matter chronic small vessel ischemic changes. There is intracranial internal carotid artery atherosclerosis. Skull and face: Calvarium and visualized facial bones appear intact, without suspicious lesions. Sinuses: Visualized sinuses and mastoids are clear. IMPRESSION: No acute intracranial pathology. Dictated by: Zana Yu M.D. on 03/31/2024 at 11:34 Approved by: Zana Yu M.D. on 03/31/2024 at 11:35
[2024-03-31 11:18] LABS: Add Manual Diff / Slide Review NO; Basophils Absolute Auto 0 /uL (0-100); Basophils Percent Auto 0.9 % (0-2); Eosinophils Absolute Auto 200 /uL (0-450); Eosinophils Percent Auto 3.7 % (2-4); Hematocrit 35.9 % (36-46); Hemoglobin 12.2 g/dL (12.0-16.0); Lymphocytes Absolute Auto 1200 /uL (1100-4500); Lymphocytes Percent Auto 29.9 % (25-40); Mean Corpuscular HGB Conc 33.9 % (30-36); Mean Corpuscular Hemoglobin 32.6 PG (26-34); Mean Corpuscular Volume 96.1 fL (80-100); Monocytes Absolute Auto 300 /uL (0-900); Monocytes Percent Auto 7.2 % (3-14); Neutrophils Absolute Auto 2400 /uL (1500-7000); Neutrophils Percent Auto 58.3 % (50-75); Platelet Count 208 X10^3/uL (150-400); Red Blood Cell Count 3.74 X10^6/uL (4.0-5.2); Red Cell Distribution Width 13.5 % (11.6-14.8); White Blood Cell Count 4.2 X10^3/uL (4.5-11.0)
[2024-03-31 11:41] LABS: BUN Creatinine Ratio 16.1 (6-22); Blood Urea Nitrogen 10 mg/dL (7-17); Carbon Dioxide 25 mmol/L (22-32); Chloride 108 mmol/L (98-107); Estimated Glomerular Filt Rate > 60 mL/min (>60); Glucose 97 mg/dL (80-110); HEMOLYSIS < 15 (0-50); Potassium 3.7 mmol/L (3.4-5.1); Sodium 138 mmol/L (137-145)
--- NOTE | 2024-03-31 12:37 | PC.NURSE ---
Provider conducting hearing test with tuning fork. discussed poss stroke with provider. Pt not experiencing stroke like symptoms at this time. her airway is in tact, she is able to cough, clear her throat and swallowing ability is in tact
== END 2024-03-31 13:19 | disposition home or self-care (01) ==
PROVIDERS: Emergency Provider Emergency Medicine; PCP Family Medicine
DX: H91.90 Unspecified hearing loss, unspecified ear (principal); R42 Dizziness and giddiness; K21.9 Gastro-esophageal reflux disease without esophagitis; E78.5 Hyperlipidemia, unspecified
CPT/HCPCS: 36415; 70450; 80048; 85025; 99283; 99284

== ENCOUNTER → 2024-06-06 15:11 | Outpatient (ROUT) | payer MEDICARE, OTHER, SELFPAY ==
[2024-06-06 15:55] LABS: Influenza A - CEPHEID Flu A NEGATIVE (NEGATIVE); Influenza B - CEPHEID Flu B NEGATIVE (NEGATIVE); Respiratory Syncytial Virus Negative (Negative)
[2024-06-06 15:56] LABS: COVID-19 CEPHEID 4-PLEX PCR Negative (Negative)
== END ==
PROVIDERS: PCP Family Medicine; Visit Provider Family Medicine
DX: R05.9 Cough, unspecified (principal); R06.02 Shortness of breath; R53.82 Chronic fatigue, unspecified
CPT/HCPCS: 0241U

== ENCOUNTER → 2024-06-14 11:55 | Outpatient (CLI) | payer MEDICARE, OTHER, SELFPAY ==
--- NOTE | 2024-06-14 11:59 | DI.RAD.S_ITS ---
PROCEDURE: XR CHEST 2V INDICATIONS: SUBACUTE COUGH TECHNIQUE: 2 views of the chest were acquired. COMPARISON: [facility], CR, XR CHEST 1V, 12/02/2022, 14:39. FINDINGS: Surgical changes and devices: None. Lungs and pleura: Lungs are clear. No pleural effusions or pneumothorax. Mediastinum: Mediastinal contours are normal. Heart size is normal. Bones and chest wall: No suspicious bony abnormalities. Soft tissues appear unremarkable. IMPRESSION: No acute cardiopulmonary abnormality is seen. Approved by: Brandyn Coronado M.D. on 06/14/2024 at 19:13
== END ==
PROVIDERS: PCP Family Medicine; Referring Provider Family Medicine; Visit Provider Family Medicine
DX: R05.2 Subacute cough (principal)
CPT/HCPCS: 71046

== ENCOUNTER → 2024-08-16 14:56 | Outpatient (CLI) | payer MEDICARE, SELFPAY ==
--- NOTE | 2024-08-16 15:20 | DI.MRI.S_ITS ---
PROCEDURE: MR CERVICAL SPINE WO CON INDICATIONS: bilateral hand numbness TECHNIQUE: Noncontrast sagittal T1 spin echo and T2 fast spin echo, sagittal STIR, foraminal oblique sagittal T2 fast spin echo, and axial gradient echo or T2 fast spin echo through the cervical spine. COMPARISON: None. FINDINGS: Image quality: Slight patient motion on several sequences. Alignment and Curvature: Trace retrolisthesis C4-5. Trace anterolisthesis T1-2. Bone Marrow: Marrow demonstrates normal overall signal. Spinal Cord: Visualized spinal cord has normal size and signal. No cerebellar tonsillar herniation. Paraspinous Soft Tissues: No paravertebral masses. Prevertebral soft tissues are normal in thickness. C2-C3: Normal appearance. C3-C4: Mild disc desiccation and small right foraminal disc osteophyte. Mild right foraminal narrowing due to disc osteophyte. C4-C5: Moderate to severe disc height loss and disc desiccation. Small broad- based posterior disc osteophyte. Mild bilateral facet arthropathy. Mild central canal narrowing. Moderate right and severe left foraminal stenosis. C5-C6: Disc desiccation and moderate diffuse disc height loss. Irregular posterior disc osteophyte slightly flattening the cord shape without CSF effacement. Mild left and [id number] right foraminal stenosis. C6-C7: Small left foraminal broad-based disc bulge. No significant central canal or foraminal stenosis. C7-T1: Normal appearance. IMPRESSION: Facet arthropathy, posterior disc osteophyte, likely accentuated by grade 1 retrolisthesis present at the C4-5 level resulting in moderate to severe bilateral foraminal stenosis. No significant central canal stenosis or abnormal cord signal. Dictated by: Anjelica Berrios M.D. on 08/17/2024 at 15:17 Approved by: Anjelica Berrios M.D. on 08/17/2024 at 15:30
== END ==
LOC: MRI 14:57
PROVIDERS: PCP Family Medicine; Referring Provider Family Medicine; Visit Provider Family Medicine
DX: M47.812 Spondylosis without myelopathy or radiculopathy, cervical region (principal); R20.0 Anesthesia of skin; M48.02 Spinal stenosis, cervical region
CPT/HCPCS: 72141

== ENCOUNTER → 2024-11-15 12:19 | Outpatient (CLI) | payer MEDICARE, BC, SELFPAY | PROVIDERS: PCP Family Medicine; Referring Provider Family Medicine; Visit Provider Family Medicine | DX: R51.9 Headache, unspecified (principal) | CPT/HCPCS: 36415; 85651 ==

== ENCOUNTER → 2024-11-19 09:30 | Outpatient (CLI) | payer MEDICARE, BC, SELFPAY ==
--- NOTE | 2024-11-19 09:31 | DI.MRI.S_ITS ---
PROCEDURE: MR ORBITS FACE NECK WO/W CON INDICATIONS: LT FACIAL TUMOR TECHNIQUE: Sagittal/axial/coronal T1 spin echo and STIR. After the administration of contrast, axial/coronal/sagittal T1 fast spin echo with fat saturation through the neck. COMPARISON: None. FINDINGS: Image quality: Dental hardware results in susceptibility artifact which obscures evaluation of the maxillofacial structures and pharynx Lymph nodes: No enlarged nodes are seen throughout the neck. Vessels: Visualized vasculature appears normal, with normal flow voids and enhancement. Neck spaces: The oropharynx, nasopharynx and pharynx are unremarkable, without mucosal lesions seen. Vocal cords, false vocal cords, pyriform sinuses, epiglottis, vallecula, and tongue base all appear normal. Extramucosal spaces of the neck also appear unremarkable. Glands: The parotid and submandibular glands appear normal. Thyroid gland unremarkable. Miscellaneous: Visualized brain and orbits appear normal. Lung apices appear clear. Superficial soft tissues appear normal. Visualized sinuses and mastoids appear clear. Bones: Marrow has normal overall signal. IMPRESSION: Limited but unremarkable MRI of the neck with and without contrast. If there is clinical concern for facial tumor, consider follow-up contrast maxillofacial CT. Paranasal sinuses would be better evaluated with CT sinus, and the pharynx and neck would be better evaluated with dedicated CT neck with contrast. Approved by: Brandyn Coronado M.D. on 11/20/2024 at 10:57
== END ==
PROVIDERS: PCP Family Medicine; Referring Provider Family Medicine; Visit Provider Family Medicine
DX: R51.9 Headache, unspecified (principal)
CPT/HCPCS: 70543; A9579

== ENCOUNTER → 2024-11-29 16:05 | Outpatient (CLI) | payer MEDICARE, BC, SELFPAY ==
--- NOTE | 2024-11-29 16:07 | DI.MRI.S_ITS ---
PROCEDURE: MR HEAD/BRAIN WO/W CON INDICATIONS: new onset of headache TECHNIQUE: Noncontrast axial T1 spin echo, axial T2 fast spin echo, sagittal and axial FLAIR, coronal T2 fast spin echo, axial gradient echo, axial diffusion and ADC through the brain. After the administration of contrast, axial and coronal and sagittal T1 spin echo with fat saturation through the brain. COMPARISON: None. FINDINGS: Image quality: Dental hardware artifact limits evaluation of the anterior brain.. CSF spaces: Basal cisterns are patent. No extra-axial fluid collections. Ventricles are normal in size and shape. Brain: No midline shift. No intracranial bleeds or masses. No abnormal intracranial enhancement. There is mild cerebral volume loss for age. There is minimal periventricular white matter chronic small vessel ischemic change. The brainstem appears normal. Diffusion-weighted images demonstrate no acute infarct. No chronic ischemic insults. Normal intravascular flow voids are present. Skull and face: Calvarial marrow is normal in signal. Bilateral lens replacements. Otherwise, the orbits are unremarkable. Sinuses: Sinuses and mastoids appear clear. IMPRESSION: No acute intracranial abnormalities or abnormal intracranial enhancement. Mild age-appropriate global volume loss and minimal chronic microvascular ischemic changes. Approved by: Jacobo Soto M.D. on 11/30/2024 at 13:27
== END ==
PROVIDERS: PCP Family Medicine; Referring Provider Family Medicine; Visit Provider Family Medicine
DX: R51.9 Headache, unspecified (principal); R26.89 Other abnormalities of gait and mobility
CPT/HCPCS: 70553; A9579